=== PATIENT | male | born 1955 | race Caucasian/White ===

== ENCOUNTER → 2016-12-25 | Outpatient (CLI) | payer MEDICARE, MEDICAID ==
[2016-12-25 11:19] LABS: APPEARANCE,URINE CLEAR; BILIRUBIN,URINE NEGATIVE (NEGATIVE); GLUCOSE, URINE >=500 mg/dL (NEGATIVE); KETONES,URINE NEGATIVE (NEGATIVE); LEUKOCYTE ESTERASE,URINE NEGATIVE (NEGATIVE); NITRITE,URINE NEGATIVE (NEGATIVE); PROTEIN,URINE NEGATIVE (NEGATIVE); URINE SPECIFIC GRAVITY 1.029; UROBILINOGEN,URINE NEGATIVE mg/dL (<2.0)
[2016-12-25 11:34] LABS: HEMATOCRIT 41.2 % (37.9-51.0); HEMOGLOBIN 13.9 g/dL (13.5-17.0); HGB HCT DIFFERENCE 0.5; MEAN CORPUSCULAR HGB CONC 33.8 g/dL (32.0-36.0); MEAN CORPUSCULAR VOLUME 95 fl (80-97); RED BLOOD COUNT 4.34 10^6/uL (4.35-5.55); RED CELL DISTRIBUTION WIDTH 14.2 % (11.5-14.0); WHITE BLOOD COUNT 8.4 10^3/uL (4.0-10.5)
[2016-12-25 11:51] LABS: ANION GAP 12 (5-19); BLOOD UREA NITROGEN 24 mg/dL (7-20); CALCIUM 9.6 mg/dL (8.4-10.2); CARBON DIOXIDE 22 mmol/L (22-30); CHLORIDE 104 mmol/L (98-107); CREATININE RESULT 1.65 mg/dL (0.52-1.25); GLUCOSE 238 mg/dL (75-110); POTASSIUM 4.7 mmol/L (3.6-5.0); SODIUM 138.3 mmol/L (137-145)
[2016-12-26 11:40] LABS: CREATININE URINE 80.6 mg/dL (Not Estab.); MICROALBUMIN URINE 4.4 ug/mL (Not Estab.)
== END ==
LOC: LAB 11:01
PROVIDERS: ATTEND Internal Medicine Nephrology
DX: I12.9 Hypertensive chronic kidney disease with stage 1 through stage 4 chronic kidney disease, or unspecified chronic kidney disease (principal); N18.3 Chronic kidney disease, stage 3 (moderate); E11.9 Type 2 diabetes mellitus without complications
CPT/HCPCS: 36415; 80048; 81001; 82043; 82570; 85027

== ENCOUNTER → 2017-12-17 | Outpatient (CLI) | payer MEDICARE, MEDICAID ==
[2017-12-17 15:12] LABS: HEMATOCRIT 43.6 % (37.9-51.0); HEMOGLOBIN 14.7 g/dL (13.5-17.0); MEAN CORPUSCULAR HEMOGLOBIN 31.5 pg (27.0-33.4); MEAN CORPUSCULAR HGB CONC 33.8 g/dL (32.0-36.0); MEAN CORPUSCULAR VOLUME 93 fl (80-97); PLATELET COUNT 369 10^3/uL (150-450); RED BLOOD COUNT 4.68 10^6/uL (4.35-5.55); RED CELL DISTRIBUTION WIDTH 14.2 % (11.5-14.0); WHITE BLOOD COUNT 9.4 10^3/uL (4.0-10.5)
[2017-12-17 15:19] LABS: APPEARANCE,URINE CLEAR; BILIRUBIN,URINE NEGATIVE (NEGATIVE); COLOR,URINE YELLOW; GLUCOSE, URINE >=500 mg/dL (NEGATIVE); KETONES,URINE 20 mg/dL (NEGATIVE); LEUKOCYTE ESTERASE,URINE NEGATIVE (NEGATIVE); NITRITE,URINE NEGATIVE (NEGATIVE); PROTEIN,URINE 30 mg/dL (NEGATIVE); URINE SPECIFIC GRAVITY 1.029; UROBILINOGEN,URINE NEGATIVE mg/dL (<2.0)
[2017-12-17 15:30] LABS: ANION GAP 19 (5-19); BLOOD UREA NITROGEN 25 mg/dL (7-20); CALCIUM 10.3 mg/dL (8.4-10.2); CARBON DIOXIDE 24 mmol/L (22-30); CHLORIDE 101 mmol/L (98-107); GLUCOSE 241 mg/dL (75-110); SODIUM 143.9 mmol/L (137-145)
[2017-12-17 15:38] LABS: UR PRO/CREAT RATIO RESULT 0.4 mg/mg (0.0-0.2); URINE CREATININE 110.3 mg/dL (22-328); URINE PROTEIN 43.9 mg/dL (<12)
== END ==
LOC: LAB 14:52
PROVIDERS: ATTEND Internal Medicine Nephrology
DX: I12.9 Hypertensive chronic kidney disease with stage 1 through stage 4 chronic kidney disease, or unspecified chronic kidney disease (principal); N18.3 Chronic kidney disease, stage 3 (moderate); E11.9 Type 2 diabetes mellitus without complications; R80.9 Proteinuria, unspecified
CPT/HCPCS: 36415; 80048; 81001; 82570; 84156; 85027

== ENCOUNTER → 2018-05-02 | Outpatient (CLI) | payer MEDICARE, MEDICAID ==
[2018-05-02 14:16] LABS: APPEARANCE,URINE CLEAR; BILIRUBIN,URINE NEGATIVE (NEGATIVE); COLOR,URINE STRAW; GLUCOSE, URINE >=500 mg/dL (NEGATIVE); KETONES,URINE NEGATIVE (NEGATIVE); LEUKOCYTE ESTERASE,URINE NEGATIVE (NEGATIVE); NITRITE,URINE NEGATIVE (NEGATIVE); PROTEIN,URINE NEGATIVE (NEGATIVE); URINE SPECIFIC GRAVITY 1.023; UROBILINOGEN,URINE NEGATIVE mg/dL (<2.0)
[2018-05-02 14:24] LABS: HEMATOCRIT 40.4 % (37.9-51.0); HEMOGLOBIN 13.9 g/dL (13.5-17.0); MEAN CORPUSCULAR HEMOGLOBIN 31.7 pg (27.0-33.4); MEAN CORPUSCULAR HGB CONC 34.5 g/dL (32.0-36.0); MEAN CORPUSCULAR VOLUME 92 fl (80-97); PLATELET COUNT 370 10^3/uL (150-450); RED BLOOD COUNT 4.39 10^6/uL (4.35-5.55); RED CELL DISTRIBUTION WIDTH 14.5 % (11.5-14.0); WHITE BLOOD COUNT 10.2 10^3/uL (4.0-10.5)
[2018-05-02 14:32] LABS: UR PRO/CREAT RATIO RESULT 0.3 mg/mg (0.0-0.2); URINE CREATININE 51.6 mg/dL (22-328); URINE PROTEIN 13.7 mg/dL (<12)
[2018-05-02 14:44] LABS: ANION GAP 15 (5-19); BLOOD UREA NITROGEN 23 mg/dL (7-20); CALCIUM 9.9 mg/dL (8.4-10.2); CARBON DIOXIDE 26 mmol/L (22-30); CHLORIDE 105 mmol/L (98-107); GLUCOSE 184 mg/dL (75-110); PHOSPHORUS 3.8 mg/dL (2.5-4.5); POTASSIUM 4.9 mmol/L (3.6-5.0); SODIUM 145.5 mmol/L (137-145)
== END ==
LOC: OD 13:30
PROVIDERS: ATTEND Physician Assistant Medical
DX: I12.9 Hypertensive chronic kidney disease with stage 1 through stage 4 chronic kidney disease, or unspecified chronic kidney disease (principal); N18.3 Chronic kidney disease, stage 3 (moderate); R80.9 Proteinuria, unspecified; E11.9 Type 2 diabetes mellitus without complications
CPT/HCPCS: 36415; 80048; 81001; 82570; 83970; 84100; 84156; 85027

== ENCOUNTER → 2018-11-04 | Outpatient (CLI) | payer MEDICARE, MEDICAID ==
[2018-11-04 14:37] LABS: HEMATOCRIT 41.7 % (37.9-51.0); HEMOGLOBIN 14.3 g/dL (13.5-17.0); MEAN CORPUSCULAR HEMOGLOBIN 32.1 pg (27.0-33.4); MEAN CORPUSCULAR HGB CONC 34.4 g/dL (32.0-36.0); MEAN CORPUSCULAR VOLUME 93 fl (80-97); PLATELET COUNT 359 10^3/uL (150-450); RED BLOOD COUNT 4.47 10^6/uL (4.35-5.55); WHITE BLOOD COUNT 11.7 10^3/uL (4.0-10.5)
[2018-11-04 14:42] LABS: APPEARANCE,URINE CLEAR; BILIRUBIN,URINE NEGATIVE (NEGATIVE); COLOR,URINE STRAW; GLUCOSE, URINE >=500 mg/dL (NEGATIVE); KETONES,URINE NEGATIVE (NEGATIVE); LEUKOCYTE ESTERASE,URINE NEGATIVE (NEGATIVE); NITRITE,URINE NEGATIVE (NEGATIVE); PROTEIN,URINE NEGATIVE (NEGATIVE); URINE SPECIFIC GRAVITY 1.029; UROBILINOGEN,URINE NEGATIVE mg/dL (<2.0)
[2018-11-04 14:51] LABS: ANION GAP 12 (5-19); BLOOD UREA NITROGEN 26 mg/dL (7-20); CALCIUM 9.7 mg/dL (8.4-10.2); CARBON DIOXIDE 27 mmol/L (22-30); CHLORIDE 102 mmol/L (98-107); GLUCOSE 307 mg/dL (75-110); PHOSPHORUS 4.8 mg/dL (2.5-4.5); POTASSIUM 5.1 mmol/L (3.6-5.0); SODIUM 140.8 mmol/L (137-145)
[2018-11-04 14:58] LABS: UR PRO/CREAT RATIO RESULT 0.2 mg/mg (0.0-0.2); URINE CREATININE 79.1 mg/dL (22-328); URINE PROTEIN 17.2 mg/dL (<12)
== END ==
LOC: LAB 14:18
PROVIDERS: ATTEND Physician Assistant Medical
DX: I12.9 Hypertensive chronic kidney disease with stage 1 through stage 4 chronic kidney disease, or unspecified chronic kidney disease (principal); N18.3 Chronic kidney disease, stage 3 (moderate); E11.22 Type 2 diabetes mellitus with diabetic chronic kidney disease; R80.9 Proteinuria, unspecified
CPT/HCPCS: 36415; 80048; 81001; 82570; 83970; 84100; 84156; 85027

== ENCOUNTER 2018-11-08 11:14 | Emergency (ER) | payer MEDICAID, MEDICARE ==
[2018-11-08] MEDS ORDERED: ALBUTEROL SULFATE 0.083% NEB 2.5 MG/3 ML AMPUL NEB ONE (12:16)
--- NOTE | 2018-11-08 12:20 | ER Document Report ---
ED General - General Chief Complaint: Chest Pressure Stated Complaint: CHEST PAINS Time Seen by Provider: 11/08/18 11:21 Notes: 63-year-old male presents to emerge from with some chest discomfort and palpitations. The patient stated he was at his doctor's office when he began feeling palpitations but felt like a rapid heart rate. He was sent over here to the ER for evaluation. He denies chest pain proper but does states he felt as if his heart was going fast. He really denies shortness of breath dizziness or nausea. He states he has been out of his inhaler for the last week. He denies any fever chills or sore throat. Has had a cough but that is standard for him denies any productive cough. Denies calf pain or leg swelling. TRAVEL OUTSIDE OF THE [place] IN LAST 30 DAYS: No - Related Data Allergies/Adverse Reactions: Sulfa (Sulfonamide Antibiotics) Allergy (Verified 03/04/16 16:09) Past Medical History - Social History Smoking Status: Unknown if Ever Smoked Family History: Reviewed & Not Pertinent Patient has suicidal ideation: No Patient has homicidal ideation: No - Past Medical History Cardiac Medical History: Reports: Hx Hypercholesterolemia, Hx Hypertension Endocrine Medical History: Reports: Hx Diabetes Mellitus Type 2 Renal/ Medical History: Denies: Hx Peritoneal Dialysis Past Surgical History: Reports: Hx Appendectomy, Hx Cholecystectomy - Immunizations Hx Diphtheria, Pertussis, Tetanus Vaccination: Yes Review of Systems - Review of Systems Respiratory: Cough Gastrointestinal: denies: Nausea, Vomiting Neurological/Psychological: denies: Headaches -: Yes All other systems reviewed and negative Physical Exam - Vital signs Vitals: Temp 99.1 F 11/08/18 11:24 - Notes Notes: GENERAL_APPEARANCE: well_nourished, alert, cooperative, no_acute_distress, no_obvious_discomfort. VITALS: reviewed, see vital signs table. HEAD: no_swelling\tenderness on the head. EYES: PERRL, EOMI, conjunctiva_clear. NOSE: no_nasal_discharge. MOUTH: (-)decreased moisture. THROAT: no_tonsilar_inflammation, no_airway_obstruction. no_lymphadenopathy NECK: supple, no_neck_tenderness, (-)thyromegaly. BACK: no_back_tenderness. CHEST_WALL: no_chest_tenderness. LUNGS: Scant_wheezing, no_rales, no_rhonchi, (-)accessory muscle use, good air exchange bilateral. HEART: normal_rate, normal_rhythm, normal_S1, normal_S2, (-)S3, (-)S4, no_murmur, no_rub. ABDOMEN: normal_BS, soft, no_abd_tenderness, (-)guarding, (-)rebound, no_organomegaly, no_abd_masses. EXTREMITIES: good pulses in all_extremities, no_swelling\tenderness in the extremities, trace_edema. SKIN: warm, dry, good_color, no_rash. MENTAL_STATUS: speech_clear, oriented_X_3, normal_affect, responds_appropriately to questions. Course - Re-evaluation Re-evalutation: 11/08/18 12:19 Patient presents with some mild chest discomfort palpitations. He states he is feeling better now states his been out of his inhaler will give him a albuterol here. Will check some generalized lab work. 11/08/18 14:20 Patient feels much better after the aerosol treatment. There looks to be a little hemolysis to the BMP. We will give the patient a little bit of IV fluid. Otherwise encouraged him to hydrate I think this is more likely hemolysis. The patient will be given a prescription for albuterol inhaler. He will likely need to have his electro lites rechecked in several days. - Vital Signs Vital signs: Temp Pulse Resp BP Pulse Ox 99.1 F 11/08/18 11:24 - Laboratory Result Diagrams: 11/08/18 12:58 11/08/18 12:58 Laboratory results interpreted by me: 11/08/18 11/08/18 11:22 12:58 Potassium 5.8 H Carbon Dioxide 21 L BUN 30 H Creatinine 1.81 H Est GFR ( Amer) 46 L Est GFR (Non-Af Amer) 38 L Glucose 280 H POC Glucose 333 H Calcium 10.3 H - Diagnostic Test Radiology reviewed: Reports reviewed Radiology results interpreted by me: 11/08/18 14:20 Chest X-Ray 11/08/18 12:17 IMPRESSION: NO ACUTE RADIOGRAPHIC FINDING IN THE CHEST. - EKG Interpretation by [facility] EKG shows normal: Sinus rhythm Rate: Tachycardia When compared to previous EKG there are: No significant change Additional EKG results interpreted by me: 11/08/18 14:20 Sinus tach [address] abnormalities Discharge - Discharge Clinical Impression: Chest discomfort, Bronchospasm, Dehydration Condition: Good Disposition: HOME, SELF-CARE Instructions: Chest Pain of Unclear Cause ([facility]), Dehydration ([facility]) Additional Instructions: Next week please visit your family doctor and have your electrolytes rechecked. You had some mild dehydration making your potassium mildly elevated. Drink plenty of fluids this weekend and have your electrolytes/metabolic panel rechecked on Sunday or Sunday. Please call your doctor. If you are unable to get up with your doctor return to the emergency department. Prescriptions: Albuterol Sulfate [Proair HFA Inhalation Aerosol 8.5 gm MDI] 2 puff IH Q4H PRN #1 mdi PRN Reason: Referrals: JESS BRIONES PA-C [Primary Care Provider] - Follow up as needed
--- NOTE | 2018-11-08 13:18 | RADIOLOGY REPORT (SQ) ---
EXAM DESCRIPTION: CHEST SINGLE VIEW COMPLETED DATE/TIME: 11/08/2018 1:01 pm REASON FOR STUDY: cp COMPARISON: 03/30/2010. EXAM PARAMETERS: NUMBER OF VIEWS: One view. TECHNIQUE: Single frontal radiographic view of the chest acquired. RADIATION DOSE: NA LIMITATIONS: None. FINDINGS: LUNGS AND PLEURA: No opacities, masses or pneumothorax. No pleural effusion. MEDIASTINUM AND HILAR STRUCTURES: No masses. Contour normal. HEART AND VASCULAR STRUCTURES: Heart normal in size. Normal vasculature. BONES: No acute findings. HARDWARE: None in the chest. OTHER: No other significant finding. IMPRESSION: NO ACUTE RADIOGRAPHIC FINDING IN THE CHEST. TECHNICAL DOCUMENTATION: JOB ID: [id number] [employer]- All Rights Reserved Reading location - IP/workstation name: [email or web address]
[2018-11-08 13:38] LABS: ABSOLUTE BASOPHILS # (AUTO) 0.1 10^3/uL (0.0-0.2); ABSOLUTE EOSINOPHILS # (AUTO) 0.5 10^3/uL (0.0-0.6); ABSOLUTE MONOCYTES (AUTO) 0.7 10^3/uL (0.1-1.4); BASOPHILS % (AUTO) 1.1 % (0-2); EOSINOPHILS % (AUTO) 4.6 % (0-6); HEMATOCRIT 43.7 % (37.9-51.0); HEMOGLOBIN 14.9 g/dL (13.5-17.0); LYMPHOCYTES % (AUTO) 19.3 % (13-45); MEAN CORPUSCULAR VOLUME 94 fl (80-97); MONOCYTES % (AUTO) 6.9 % (3-13); PLATELET COUNT 339 10^3/uL (150-450); RED BLOOD COUNT 4.64 10^6/uL (4.35-5.55); SEGMENTED NEUTROPHILS % (AUTO) 68.1 % (42-78); TOTAL CELLS COUNTED % (AUTO) 100 %; WHITE BLOOD COUNT 10.3 10^3/uL (4.0-10.5)
[2018-11-08 14:02] LABS: ANION GAP 14 (5-19); BLOOD UREA NITROGEN 30 mg/dL (7-20); CALCIUM 10.3 mg/dL (8.4-10.2); CARBON DIOXIDE 21 mmol/L (22-30); CHLORIDE 103 mmol/L (98-107); GLUCOSE 280 mg/dL (75-110); POTASSIUM 5.8 mmol/L (3.6-5.0); SODIUM 138.1 mmol/L (137-145)
[2018-11-08] MEDS ORDERED: NORMAL SALINE 1000 ML 1,000 ML IV ONE (14:16)
[2018-11-08 14:37] VITALS: BP 100/61
== END 2018-11-08 14:38 | disposition home or self-care (01) ==
LOC: ER 11:14
DX: J98.01 Acute bronchospasm (principal); E86.0 Dehydration; R00.2 Palpitations; R00.0 Tachycardia, unspecified; R05 Cough; R06.2 Wheezing; I10 Essential (primary) hypertension; E11.9 Type 2 diabetes mellitus without complications; Z88.2 Allergy status to sulfonamides
CPT/HCPCS: 94640; 99285; 36415; 82962; 85025; 80048; 84484; 71045; A9270

== ENCOUNTER → 2019-05-02 | Outpatient (CLI) | payer MEDICAID, MEDICARE ==
[2019-05-02 11:52] LABS: HEMATOCRIT 39.6 % (37.9-51.0); HEMOGLOBIN 13.5 g/dL (13.5-17.0); MEAN CORPUSCULAR HEMOGLOBIN 31.9 pg (27.0-33.4); MEAN CORPUSCULAR HGB CONC 34.2 g/dL (32.0-36.0); MEAN CORPUSCULAR VOLUME 93 fl (80-97); PLATELET COUNT 348 10^3/uL (150-450); RED BLOOD COUNT 4.25 10^6/uL (4.35-5.55); RED CELL DISTRIBUTION WIDTH 14.2 % (11.5-14.0); WHITE BLOOD COUNT 8.4 10^3/uL (4.0-10.5)
[2019-05-02 11:58] LABS: APPEARANCE,URINE CLEAR; BILIRUBIN,URINE NEGATIVE (NEGATIVE); COLOR,URINE STRAW; GLUCOSE, URINE >=500 mg/dL (NEGATIVE); KETONES,URINE NEGATIVE (NEGATIVE); LEUKOCYTE ESTERASE,URINE NEGATIVE (NEGATIVE); NITRITE,URINE NEGATIVE (NEGATIVE); PROTEIN,URINE NEGATIVE (NEGATIVE); URINE SPECIFIC GRAVITY 1.027; UROBILINOGEN,URINE NEGATIVE mg/dL (<2.0)
[2019-05-02 12:22] LABS: ANION GAP 13 (5-19); BLOOD UREA NITROGEN 34 mg/dL (7-20); CALCIUM 10.4 mg/dL (8.4-10.2); CARBON DIOXIDE 24 mmol/L (22-30); CHLORIDE 104 mmol/L (98-107); GLUCOSE 248 mg/dL (75-110); PHOSPHORUS 4.7 mg/dL (2.5-4.5); POTASSIUM 5.2 mmol/L (3.6-5.0); SODIUM 140.6 mmol/L (137-145)
[2019-05-02 12:22] LABS: UR PRO/CREAT RATIO RESULT 0.3 mg/mg (0.0-0.2); URINE CREATININE 75.1 mg/dL (22-328); URINE PROTEIN 21.7 mg/dL (<12)
== END ==
LOC: LAB 10:50
PROVIDERS: ATTEND Physician Assistant Medical
DX: I12.9 Hypertensive chronic kidney disease with stage 1 through stage 4 chronic kidney disease, or unspecified chronic kidney disease (principal); N18.3 Chronic kidney disease, stage 3 (moderate); E11.22 Type 2 diabetes mellitus with diabetic chronic kidney disease; R80.9 Proteinuria, unspecified
CPT/HCPCS: 36415; 80048; 81001; 82570; 83970; 84100; 84156; 85027

== ENCOUNTER 2020-05-24 13:22 | Inpatient (IN) | payer MEDICARE ==
[2020-05-24] MEDS ORDERED: RINGERS SOLUTION,LACTATED 1,000 ML IV ONE (15:00)
[2020-05-24 15:12] LABS: ABSOLUTE BASOPHILS # (AUTO) 0.1 10^3/uL (0.0-0.2); ABSOLUTE EOSINOPHILS # (AUTO) 0.2 10^3/uL (0.0-0.6); ABSOLUTE LYMPHOCYTES (AUTO) 2.2 10^3/uL (0.5-4.7); ABSOLUTE MONOCYTES (AUTO) 0.8 10^3/uL (0.1-1.4); ABSOLUTE NEUT (AUTO) 7.6 10^3/uL (1.7-8.2); BASOPHILS % (AUTO) 1.2 % (0-2); EOSINOPHILS % (AUTO) 2.1 % (0-6); HEMATOCRIT 42.3 % (37.9-51.0); HEMOGLOBIN 14.4 g/dL (13.5-17.0); LYMPHOCYTES % (AUTO) 19.8 % (13-45); MEAN CORPUSCULAR HEMOGLOBIN 32.7 pg (27.0-33.4); MEAN CORPUSCULAR HGB CONC 34.2 g/dL (32.0-36.0); MEAN CORPUSCULAR VOLUME 96 fl (80-97); MONOCYTES % (AUTO) 7.6 % (3-13); PLATELET COUNT 361 10^3/uL (150-450); RED BLOOD COUNT 4.42 10^6/uL (4.35-5.55); RED CELL DISTRIBUTION WIDTH 14.6 % (11.5-14.0); SEGMENTED NEUTROPHILS % (AUTO) 69.3 % (42-78); TOTAL CELLS COUNTED % (AUTO) 100 %; WHITE BLOOD COUNT 10.9 10^3/uL (4.0-10.5)
[2020-05-24 15:17] LABS: INTERNATIONAL RATION (INR) 0.96; PROTHROMBIN TIME 12.8 SEC (11.4-15.4)
[2020-05-24 15:35] LABS: ALBUMIN 4.6 g/dL (3.5-5.0); ALKALINE PHOSPHATASE 94 U/L (38-126); ANION GAP 11 (5-19); ASPARTATE AMINO TRANSFERASE 36 U/L (17-59); BILIRUBIN,TOTAL 0.7 mg/dL (0.2-1.3); BLOOD UREA NITROGEN 40 mg/dL (7-20); CALCIUM 9.5 mg/dL (8.4-10.2); CARBON DIOXIDE 18 mmol/L (22-30); CHLORIDE 104 mmol/L (98-107); GLUCOSE 381 mg/dL (75-110); TOTAL PROTEIN 8.4 g/dL (6.3-8.2)
[2020-05-24 15:39] LABS: POTASSIUM 6.4 mmol/L (3.6-5.0)
[2020-05-24 15:43] LABS: APPEARANCE,URINE CLEAR; BILIRUBIN,URINE NEGATIVE (NEGATIVE); COLOR,URINE YELLOW; GLUCOSE, URINE >=500 mg/dL (NEGATIVE); KETONES,URINE TRACE mg/dL (NEGATIVE); PROTEIN,URINE NEGATIVE (NEGATIVE); URINE SPECIFIC GRAVITY 1.022; UROBILINOGEN,URINE NEGATIVE mg/dL (<2.0)
[2020-05-24 15:48] LABS: NT PRO BNP 32 pg/mL (<125)
[2020-05-24] MEDS ORDERED: NORMAL SALINE 1000 ML 1,000 ML IV ONE (15:49)
[2020-05-24 15:55] LABS: TROPONIN I < 0.012 ng/mL
--- NOTE | 2020-05-24 16:01 | ER Document Report ---
ED General - General Chief Complaint: Low Blood Pressure Stated Complaint: DIRECT ADMIT Time Seen by Provider: 05/24/20 14:46 Primary Care Provider: JESS BRIONES PA-C [Primary Care Provider] - Follow up as needed Notes: 64-year-old male presents emergency department from Dr. Anand's office due to hypotension. Dr. Villalobos had wanted him to be a direct admit however there were no beds available and patient was not felt to be stable to wait at home so he came to the ED. patient apparently had elevated blood sugar into the 350s on Sunday and then checked again and it was still elevated today, also noticed to have low blood pressure at home and went into into the office today. Complains of feeling sick to his stomach but not actually vomiting and denies any abdominal pain. Also feels lightheaded and like he may pass out intermittently. Denies any cough, shortness of breath, vomiting, diarrhea or abdominal pain. Denies any chest pain as well. Denies any fevers. TRAVEL OUTSIDE OF THE [place] IN LAST 30 DAYS: No - Related Data Allergies/Adverse Reactions: Sulfa (Sulfonamide Antibiotics) Allergy (Verified 03/04/16 16:09) Past Medical History - General Information source: Patient - Social History Smoking Status: Former Smoker Frequency of alcohol use: None Drug Abuse: None Family History: Reviewed & Not Pertinent Patient has homicidal ideation: No - Past Medical History Cardiac Medical History: Reports: Hx Hypercholesterolemia, Hx Hypertension Endocrine Medical History: Reports: Hx Diabetes Mellitus Type 2 Renal/ Medical History: Denies: Hx Peritoneal Dialysis Past Surgical History: Reports: Hx Appendectomy, Hx Cholecystectomy - Immunizations Hx Diphtheria, Pertussis, Tetanus Vaccination: Yes Review of Systems - Review of Systems Constitutional: See HPI, Weakness EENT: No symptoms reported Cardiovascular: See HPI, Lightheaded. denies: Chest pain Gastrointestinal: See HPI, Nausea. denies: Vomiting -: Yes All other systems reviewed and negative Physical Exam - Vital signs Vitals: Temp Pulse Resp BP Pulse Ox 97.7 F 103 H 18 88/61 L 96 05/24/20 13:40 05/24/20 13:40 05/24/20 13:40 05/24/20 13:40 05/24/20 13:40 Interpretation: Hypotensive - Notes Notes: GENERAL: Morbidly obese, slightly slow to respond, but will answer and follow commands. HEAD: Normocephalic, atraumatic EYES: Pupils equal, round and reactive to light, extraocular movements intact. ENT: Oral mucosa moist, tongue midline. NECK: Full range of motion, supple, trachea midline. LUNGS: Clear to auscultation bilaterally, no wheezes, rales or rhonchi, no re spiratory distress. HEART: Regular rate and rhythm, no murmurs, gallops, rubs. ABDOMEN: Soft, nontender, nondistended, bowel sounds present in all 4 quadrants. EXTREMITIES: Moves all 4 extremities spontaneously, no edema, radial and dorsalis pedis pulses 2/4 bilaterally. No cyanosis. NEUROLOGICAL: Awake, slow to answer questions but will answer them follow commands, no facial droop, 5 out of 5 muscle strength in all 4 extremities. PSYCH: Normal mood, normal affect. SKIN: Warm, Dry, normal turgor, slightly pale. Course - Re-evaluation Re-evalutation: 05/24/20 16:21 Sepsis protocol initiated, fluids started, once potassium was discovered to be elevated fluids were switched from LR to normal saline, CBC shows slight le ukocytosis of 10.9, INR unremarkable, CMP shows slight low sodium 132.7 which is likely pseudohyponatremia given the glucose of 381, potassium elevated at 6.4, this is being treated with Veltassa, calcium gluconate, sodium bicarb, insulin. Discussed with Dr. Lombardo who is aware of the patient's presence. EKG does not show peaked T waves, agrees no need for emergent dialysis right now. He will c ontinue to monitor. His CO2 is low was 18, patient is being hydrated using normal saline, he has acute on chronic renal failure with a BUN of 40 and creatinine 2.48, glucose elevated at 381, lactic acid normal, troponin normal, 05/24/20 16:22 No evidence of sepsis or septic shock at this time. No indication for IV antibiotics at this time. Discussed with Dr. Villalobos, would like the patient admitted to the [facility], agrees with current management. He will take over care of patient from here. - Vital Signs Vital signs: Temp Pulse Resp BP Pulse Ox 97.7 F 103 H 17 100/65 95 05/24/20 13:40 05/24/20 13:40 05/24/20 15:01 05/24/20 15:01 05/24/20 15:01 - Laboratory Result Diagrams: 05/24/20 14:50 05/24/20 14:50 Laboratory results interpreted by me: 05/24/20 05/24/20 05/24/20 14:49 14:50 14:50 WBC 10.9 H RDW 14.6 H Sodium 132.7 L Potassium 6.4 H* Carbon Dioxide 18 L BUN 40 H Creatinine 2.48 H Est GFR ( Amer) 32 L Est GFR (MDRD) Non-Af 26 L Glucose 381 H POC Glucose 384 H ALT 53 H Total Protein 8.4 H Urine Glucose (UA) Urine Ketones 05/24/20 15:35 WBC RDW Sodium Potassium Carbon Dioxide BUN Creatinine Est GFR ( Amer) Est GFR (MDRD) Non-Af Glucose POC Glucose ALT Total Protein Urine Glucose (UA) >=500 H Urine Ketones TRACE H - EKG Interpretation by Me Additional EKG results interpreted by me: 05/24/20 16:24 EKG shows sinus rhythm at a rate of 89, incomplete right bundle branch block, no ST segment elevations or depressions, there are T wave inversions noted in lead II, 3 as well as some PVCs per my interpretation. 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
[2020-05-24 16:06] LABS: VENOUS BLOOD BASE EXCESS -8.3 mmol/L; VENOUS BLOOD HCO3 19.2 mmol/L (20-32); VENOUS BLOOD PCO2 46.1 mmHg (35-63); VENOUS BLOOD PH 7.24 (7.30-7.42)
[2020-05-24] MEDS ORDERED: SODIUM BICARBONATE 8.4% INJ 50 MEQ/50 ML DISP.SYRIN IV ONE (16:07)
[2020-05-24] MEDS ORDERED: INSULIN REG, HUMAN 100 UNIT/ML 3 ML VIAL (PYX) IV ONE (16:07)
[2020-05-24] MEDS ORDERED: CALCIUM CHLORIDE 10% PF/INJ 1000 MG/10 ML SDV IV ONE (16:08)
[2020-05-24] MEDS ORDERED: CALCIUM GLUCONATE 1000 MG/10 ML INJ IV ONE (16:17)
--- NOTE | 2020-05-24 16:30 | RADIOLOGY REPORT (SQ) ---
EXAM DESCRIPTION: CHEST 2 VIEWS IMAGES COMPLETED DATE/TIME: 05/24/2020 4:21 pm REASON FOR STUDY: hypotension, nausea COMPARISON: 11/08/2018 NUMBER OF VIEWS: Two views. TECHNIQUE: Frontal and lateral radiographic views of the chest acquired. LIMITATIONS: None. FINDINGS: LUNGS AND PLEURA: Increased perihilar lung markings. No focal consolidation, masses or pn eumothorax. No pleural effusion. MEDIASTINUM AND HILAR STRUCTURES: No masses or contour abnormality. HEART AND VASCULAR STRUCTURES: Cardiac enlargement. Vascular congestion. BONES: No acute findings. HARDWARE: None in the chest. OTHER: No other significant finding. IMPRESSION: CARDIAC ENLARGEMENT. VASCULAR CONGESTION. TECHNICAL DOCUMENTATION: JOB ID: [id number] [employer]- All Rights Reserved Reading location - IP/workstation name: [email or web address]
[2020-05-24] MEDS: PATIROMER 8.4 GM SUSP PACKET PO SCH (17:52)
--- NOTE | 2020-05-24 19:47 | EKG REPORT ---
SEVERITY:- ABNORMAL ECG - SINUS RHYTHM INCOMPLETE RIGHT BUNDLE BRANCH BLOCK BORDERLINE R WAVE PROGRESSION, ANTERIOR LEADS : Confirmed by: Carlee Chou MD 24-May-2020 19:46:46
[2020-05-24] MEDS ORDERED: DEXTROSE 40% GEL 15 GM TUBE PO PRN ×3 (20:30→20:44)
[2020-05-24] MEDS ORDERED: DEXTROSE 50%-WATER SYRINGE 12.5 GM/25 ML DOSE IV PRN (20:30)
[2020-05-24] MEDS ORDERED: DEXTROSE 40% GEL 15 GM TUBE X 2 PO PRN (20:30)
[2020-05-24] MEDS ORDERED: DEXTROSE 50%-WATER SYRINGE 25 GM/50 ML DOSE IV PRN (20:30)
[2020-05-24] MEDS ORDERED: GLUCAGON,HUMAN RECOMB 1 MG INJ IM PRN ×2 (20:30→20:44)
--- NOTE | 2020-05-24 20:39 | PDOC H&P ---
History of Present Illness Admission Date/PCP: 05/24/20 17:24 RAGHAV HAGER MD History of Present Illness: KIRSTEN HANCOCK is a 64 year old male, He has history of poorly controlled diabetes mellitus, partly due to nonadherence to recommended diet, he drinks up to 20 sodas every day, he came to the office today because he was not feeling well, the caregiver said he has been sick since Sunday, the blood sugar has been very uncontrolled but he refused to go to emergency room he preferred to come to the office this morning for evaluation. He was seen in the office this morning the blood pressure recorded was 96/57 the [id number] Accu-Chek was 350 patient was feeling very sick he laid on the floor in the office, he admitted polyuria, I felt patient needed to be admitted into the hospital for management. There was no bed available to admit him directly to the hospital according to the nursing supervisor production managing so patient was directed to the ER.In the emergency room he was found to have a low blood pressure, 88/61, the chemistry demonstrated serum creatinine 2.48, BUN was 40, the serum creatinine from March 30, 2020 was 1.41, the potassium was 6.4, the venous pH was 7.24 the serum bicarbonate was 18, the serum glucose was 381. The initial lactic acid was normal. Past Medical History Cardiac Medical History: Reports: Hyperlipidema, Hypertension Endocrine Medical History: Reports: Diabetes Mellitus Type 2, Obesity Renal/ Medical History: Reports: Chronic Kidney Disease, Other - Chronic kidney disease stage III Past Surgical History Past Surgical History: Reports: Appendectomy, Cholecystectomy Social History Smoking Status: Former Smoker Cigarettes Packs Per Day: 1.5 Electronic Cigarette use?: No Number of Years Smokin Last Time Smoked: 10 years ago Frequency of Alcohol Use: None Hx Recreational Drug Use: No Drugs: None Hx Prescription Drug Abuse: No Family History Family History: Reviewed & Not Pertinent Parental Family History Reviewed: Yes Children Family History Reviewed: Yes Sibling(s) Family History Reviewed.: Yes Medication/Allergy Home Medications: Glyburide 5 mg PO BID 03/04/16 Losartan Potassium 100 mg PO DAILY 03/04/16 Metformin HCl 1,000 mg PO BID 03/04/16 Omeprazole 40 mg PO BID 03/04/16 Quetiapine Fumarate 100 mg PO DAILY 03/04/16 Albuterol Sulfate [Ventolin Hfa 8 gm Mdi] 1 puff IH Q4HP PRN 05/24/20 Budesonide/Formoterol Fumarate [Symbicort Hfa 160-4.5 Mcg Inhaler 6 gm] 1 puff IH Q12 05/24/20 Olmesartan Medoxomil [Benicar] 40 mg PO DAILY 05/24/20 Allergies/Adverse Reactions: Sulfa (Sulfonamide Antibiotics) Allergy (Verified 03/04/16 16:09) Review of Systems Constitutional: PRESENT: fatigue Eyes: ABSENT: visual disturbances Ears: ABSENT: hearing changes Cardiovascular: ABSENT: chest pain, dyspnea on exertion, edema, orthropnea, palpitations Respiratory: ABSENT: cough, hemoptysis Gastrointestinal: ABSENT: abdominal pain, constipation, diarrhea, hematemesis, hematochezia, nausea, vomiting Genitourinary: PRESENT: other - Polyuria Musculoskeletal: ABSENT: joint swelling Integumentary: ABSENT: rash, wounds Neurological: ABSENT: abnormal gait, abnormal speech, confusion, dizziness, focal weakness, syncope Psychiatric: ABSENT: anxiety, depression, homidical ideation, suicidal ideation Endocrine: PRESENT: polydipsia, polyuria. ABSENT: cold intolerance, heat intolerance, menstrual abnormalities Hematologic/Lymphatic: ABSENT: easy bleeding, easy bruising, lymphadenopathy Physical Exam Vital Signs: Temp Pulse Resp BP Pulse Ox 97.2 F 79 15 132/83 H 96 05/24/20 18:40 05/24/20 18:40 05/24/20 18:40 05/24/20 18:40 05/24/20 18:40 Intake & Output 05/23/20 05/24/20 05/25/20 06:59 06:59 06:59 Intake Total 1999 Balance 1999 Weight 123.4 kg General appearance: PRESENT: obese Head exam: PRESENT: atraumatic, normocephalic Eye exam: PRESENT: PERRLA Ear exam: PRESENT: normal external ear exam Mouth exam: PRESENT: dry mucosa Neck exam: PRESENT: full ROM Respiratory exam: PRESENT: clear to auscultation maurizio Cardiovascular exam: PRESENT: RRR, +S1, +S2 Pulses: PRESENT: normal dorsalis pedis pul, +2 pedal pulses bilateral Vascular exam: PRESENT: normal capillary refill GI/Abdominal exam: PRESENT: normal bowel sounds, soft Rectal exam: PRESENT: deferred Neurological exam: PRESENT: alert, CN II-XII grossly intact. ABSENT: motor sensory deficit Skin exam: PRESENT: dry, intact, warm. ABSENT: cyanosis, rash Results Laboratory Results: 05/24/20 14:50 05/24/20 14:50 05/24/20 05/24/20 05/24/20 14:50 14:50 14:50 WBC 10.9 H RBC 4.42 Hgb 14.4 Hct 42.3 MCV 96 MCH 32.7 MCHC 34.2 RDW 14.6 H Plt Count 361 Seg Neutrophils % 69.3 VBG pH VBG pCO2 VBG HCO3 VBG Base Excess Sodium 132.7 L Potassium 6.4 H* Chloride 104 Carbon Dioxide 18 L Anion Gap 11 BUN 40 H Creatinine 2.48 H Est GFR ( Amer) 32 L Glucose 381 H Lactic Acid 1.9 Calcium 9.5 Total Bilirubin 0.7 AST 36 Alkaline Phosphatase 94 Total Protein 8.4 H Albumin 4.6 Lipase 193.9 Urine Color Urine Appearance Urine pH Ur Specific Twain Urine Protein Urine Glucose (UA) Urine Ketones Urine Blood Urine RBC (Auto) 05/24/20 05/24/20 05/24/20 15:35 15:35 17:35 WBC RBC Hgb Hct MCV MCH MCHC RDW Plt Count Seg Neutrophils % VBG pH 7.24 L VBG pCO2 46.1 VBG HCO3 19.2 L VBG Base Excess -8.3 Sodium Potassium Chloride Carbon Dioxide Anion Gap BUN Creatinine Est GFR ( Amer) Glucose Lactic Acid 3.0 H Calcium Total Bilirubin AST Alkaline Phosphatase Total Protein Albumin Lipase Urine Color YELLOW Urine Appearance CLEAR Urine pH 5.0 Ur Specific Twain 1.022 Urine Protein NEGATIVE Urine Glucose (UA) >=500 H Urine Ketones TRACE H Urine Blood NEGATIVE Urine RBC (Auto) 0 05/24/20 14:50 Troponin I < 0.012 NT-Pro-B Natriuret Pep 32 Impressions: Chest X-Ray 05/24/20 15:00 IMPRESSION: CARDIAC ENLARGEMENT. VASCULAR CONGESTION. Assessment & Plan - Diagnosis (1) Acute kidney injury Is this a current diagnosis for this admission?: Yes Plan: The serum creatinine was 1.41 from March 30, 2020, the serum creatinine today is 2.48 suggesting acute kidney injury most likely this is due to volume depletion, low blood pressure, hemodynamic instability, we will hydrate vigorously to restore volume, continue to monitor kidney function (2) Metabolic acidosis Is this a current diagnosis for this admission?: Yes Plan: This is from acute kidney injury (3) Hypotension Qualifiers: Hypotension type: hypotension due to hypovolemia Qualified Code(s): I95.89 - Other hypotension; E86.1 - Hypovolemia Is this a current diagnosis for this admission?: Yes Plan: The low blood pressure is most likely from volume depletion from uncontrolled diabetes mellitus for the last many days. In the office the blood pressure recorded was 96/37, in the emergency room it was 88/61, the goal is to restore volume, the low blood pressure is most likely the etiology of the acute kidney injury (5) T2DM (type 2 diabetes mellitus) Qualifiers: Diabetes mellitus senior living insulin use: with senior living use Diabetes mellitus complication status: with neurologic complications Diabetes mellitus complication detail: with polyneuropathy Qualified Code(s): E11.42 - Type 2 diabetes mellitus with diabetic polyneuropathy; Z79.4 - buttermaker continuous churn (current) use of insulin Is this a current diagnosis for this admission?: Yes Plan: Continue hydration Accu-Chek
[2020-05-24] MEDS ORDERED: ACETAMINOPHEN 325 MG TABLET PO PRN (20:40)
[2020-05-24] MEDS ORDERED: DEXTROSE 50%-WATER 25 GM/50 ML DISP.SYRIN IV PRN ×2 (20:44)
[2020-05-24] MEDS: INSULIN LISPRO 100 UNIT/ML 3 ML VIAL SUBCUT SCH (21:33)
[2020-05-24] MEDS ORDERED: INSULIN LISPRO 100 UNIT/ML 3 ML VIAL SUBCUT SCH (22:00)
[2020-05-24] MEDS: ENOXAPARIN SODIUM INJ 40 MG/0.4 ML DISP.SYRIN SUBCUT SCH (22:07)
[2020-05-24] MEDS: PANTOPRAZOLE SODIUM 40 MG TABLET.DR PO SCH (22:07)
[2020-05-24 22:08] LABS: INTERNATIONAL RATION (INR) 0.92; PROTHROMBIN TIME 12.4 SEC (11.4-15.4)
[2020-05-24 22:09] LABS: PARTIAL THROMBOPLASTIN TIME 21.2 SEC (23.5-35.8)
[2020-05-24 22:32] LABS: ANION GAP 10 (5-19); BLOOD UREA NITROGEN 41 mg/dL (7-20); CALCIUM 9.7 mg/dL (8.4-10.2); CARBON DIOXIDE 23 mmol/L (22-30); CHLORIDE 105 mmol/L (98-107); GLUCOSE 134 mg/dL (75-110); PHOSPHORUS 4.3 mg/dL (2.5-4.5)
[2020-05-24 22:51] LABS: CREATINE KINASE MB 3.84 ng/mL (<4.55)
[2020-05-24 22:52] LABS: TROPONIN I < 0.012 ng/mL
[2020-05-24 23:03] LABS: POTASSIUM 4.3 mmol/L (3.6-5.0)
[2020-05-24 23:34] LABS: APPEARANCE,URINE CLEAR; BILIRUBIN,URINE NEGATIVE (NEGATIVE); COLOR,URINE YELLOW; GLUCOSE, URINE >=500 mg/dL (NEGATIVE); KETONES,URINE NEGATIVE (NEGATIVE); LEUKOCYTE ESTERASE,URINE NEGATIVE (NEGATIVE); NITRITE,URINE NEGATIVE (NEGATIVE); PROTEIN,URINE 30 mg/dL (NEGATIVE); URINE SPECIFIC GRAVITY 1.016; UROBILINOGEN,URINE NEGATIVE mg/dL (<2.0)
[2020-05-24] MEDS: NORMAL SALINE 1000 ML 1,000 ML IV PRN (23:55)
[2020-05-25 03:16] LABS: ANION GAP 7 (5-19); BLOOD UREA NITROGEN 35 mg/dL (7-20); CALCIUM 9.1 mg/dL (8.4-10.2); CARBON DIOXIDE 26 mmol/L (22-30); CHLORIDE 104 mmol/L (98-107); GLUCOSE 150 mg/dL (75-110); POTASSIUM 4.1 mmol/L (3.6-5.0)
[2020-05-25 03:24] LABS: CREATINE KINASE MB 3.59 ng/mL (<4.55)
[2020-05-25 03:28] LABS: TROPONIN I 0.013 ng/mL
[2020-05-25] MEDS: NORMAL SALINE 1000 ML 1,000 ML IV PRN ×3 (06:53→21:03)
[2020-05-25 07:01] LABS: ABSOLUTE BASOPHILS # (AUTO) 0.1 10^3/uL (0.0-0.2); ABSOLUTE EOSINOPHILS # (AUTO) 0.3 10^3/uL (0.0-0.6); ABSOLUTE LYMPHOCYTES (AUTO) 2.3 10^3/uL (0.5-4.7); ABSOLUTE MONOCYTES (AUTO) 0.6 10^3/uL (0.1-1.4); ABSOLUTE NEUT (AUTO) 3.3 10^3/uL (1.7-8.2); BASOPHILS % (AUTO) 1.3 % (0-2); EOSINOPHILS % (AUTO) 4.8 % (0-6); HEMATOCRIT 36.8 % (37.9-51.0); HEMOGLOBIN 12.7 g/dL (13.5-17.0); LYMPHOCYTES % (AUTO) 35.3 % (13-45); MEAN CORPUSCULAR HEMOGLOBIN 32.4 pg (27.0-33.4); MEAN CORPUSCULAR HGB CONC 34.4 g/dL (32.0-36.0); MEAN CORPUSCULAR VOLUME 94 fl (80-97); MONOCYTES % (AUTO) 8.6 % (3-13); PLATELET COUNT 252 10^3/uL (150-450); RED BLOOD COUNT 3.91 10^6/uL (4.35-5.55); RED CELL DISTRIBUTION WIDTH 14.2 % (11.5-14.0); TOTAL CELLS COUNTED % (AUTO) 100 %; WHITE BLOOD COUNT 6.7 10^3/uL (4.0-10.5)
[2020-05-25 07:22] LABS: ALBUMIN 3.8 g/dL (3.5-5.0); ALKALINE PHOSPHATASE 71 U/L (38-126); ANION GAP 5 (5-19); ASPARTATE AMINO TRANSFERASE 32 U/L (17-59); BILIRUBIN,TOTAL 0.6 mg/dL (0.2-1.3); BLOOD UREA NITROGEN 31 mg/dL (7-20); CALCIUM 9.1 mg/dL (8.4-10.2); CARBON DIOXIDE 25 mmol/L (22-30); CHLORIDE 106 mmol/L (98-107); CHOLESTEROL 119.09 mg/dL (0-200); GLUCOSE 138 mg/dL (75-110); POTASSIUM 4.4 mmol/L (3.6-5.0); TOTAL PROTEIN 7.3 g/dL (6.3-8.2); TRIGLYCERIDES 247 mg/dL (<150)
[2020-05-25 07:33] LABS: DIRECT LDL 51 mg/dL (<100)
[2020-05-25 07:37] LABS: FREE T4 (FREE THYROXINE) 1.13 ng/dL (0.78-2.19)
[2020-05-25 07:43] LABS: AMYLASE < 30 U/L (30-110); VLDL CHOLESTEROL 49.4 mg/dL (10-31)
[2020-05-25 07:51] LABS: THYROID STIMULATING HORMONE 2.2 uIU/mL (0.47-4.68)
[2020-05-25] MEDS: PANTOPRAZOLE SODIUM 40 MG TABLET.DR PO SCH (10:00)
[2020-05-25] MEDS: INSULIN LISPRO 100 UNIT/ML 3 ML VIAL SUBCUT SCH ×4 (10:00→23:45)
--- NOTE | 2020-05-25 10:08 | EKG REPORT ---
SEVERITY:- NORMAL ECG - SINUS RHYTHM : Confirmed by: Carlee Chou MD 25-May-2020 10:07:04
[2020-05-25 12:23] LABS: ANION GAP 10 (5-19); BLOOD UREA NITROGEN 29 mg/dL (7-20); CALCIUM 9.1 mg/dL (8.4-10.2); CARBON DIOXIDE 22 mmol/L (22-30); CHLORIDE 104 mmol/L (98-107); CREATINE KINASE 173 U/L (55-170); GLUCOSE 313 mg/dL (75-110); POTASSIUM 4.6 mmol/L (3.6-5.0)
[2020-05-25 12:32] LABS: CREATINE KINASE MB 4.21 ng/mL (<4.55); TROPONIN I 0.012 ng/mL
[2020-05-25 15:05] LABS: ANION GAP 6 (5-19); BLOOD UREA NITROGEN 26 mg/dL (7-20); CALCIUM 8.8 mg/dL (8.4-10.2); CARBON DIOXIDE 25 mmol/L (22-30); CHLORIDE 105 mmol/L (98-107); GLUCOSE 264 mg/dL (75-110); POTASSIUM 4.5 mmol/L (3.6-5.0)
[2020-05-25] MEDS: ENOXAPARIN SODIUM INJ 40 MG/0.4 ML DISP.SYRIN SUBCUT SCH (17:31)
[2020-05-25] MEDS: PATIROMER 8.4 GM SUSP PACKET PO SCH (17:33)
[2020-05-25 18:43] LABS: ANION GAP 6 (5-19); BLOOD UREA NITROGEN 22 mg/dL (7-20); CALCIUM 8.6 mg/dL (8.4-10.2); CARBON DIOXIDE 24 mmol/L (22-30); CHLORIDE 106 mmol/L (98-107); GLUCOSE 218 mg/dL (75-110); POTASSIUM 4.3 mmol/L (3.6-5.0)
--- NOTE | 2020-05-25 21:15 | PDOC PROGRESS REPORT ---
Subjective Progress Note for:: 05/25/20 Subjective:: Patient seen by the bedside somewhat better than yesterday, blood sugar uncontrolled Reason For Visit: HYPOTENSION,UNCONTROLLED DIABETES,MORBID OBESITY Physical Exam Vital Signs: Temp Pulse Resp BP Pulse Ox 98.1 F 65 20 131/64 H 98 05/25/20 20:04 05/25/20 20:04 05/25/20 20:04 05/25/20 20:04 05/25/20 20:04 Intake & Output 05/24/20 05/25/20 05/26/20 06:59 06:59 06:59 Intake Total 3740 3250 Balance 3740 3250 Weight 124.5 kg General appearance: PRESENT: no acute distress Eye exam: PRESENT: PERRLA Respiratory exam: PRESENT: clear to auscultation maurizio Cardiovascular exam: PRESENT: +S1, +S2 GI/Abdominal exam: PRESENT: soft Neurological exam: PRESENT: alert Results Laboratory Results: 05/25/20 06:48 05/25/20 18:12 05/24/20 05/24/20 05/24/20 20:45 21:50 22:12 WBC RBC Hgb Hct MCV MCH MCHC RDW Plt Count Seg Neutrophils % Sodium 137.9 Potassium 4.3 D Chloride 105 Carbon Dioxide 23 Anion Gap 10 BUN 41 H Creatinine 2.02 H Est GFR ( Amer) 41 L Glucose 134 H Lactic Acid 1.1 Calcium 9.7 Phosphorus 4.3 Magnesium 2.0 Total Bilirubin AST Alkaline Phosphatase Ammonia Total Protein Albumin Triglycerides Cholesterol LDL Cholesterol Direct VLDL Cholesterol HDL Cholesterol Amylase Lipase TSH Free T4 Urine Color YELLOW Urine Appearance CLEAR Urine pH 5.0 Ur Specific [place] 1.016 Urine Protein 30 H Urine Glucose (UA) >=500 H Urine Ketones NEGATIVE Urine Blood SMALL H Urine Nitrite NEGATIVE Ur Leukocyte Esterase NEGATIVE Urine WBC (Auto) 1 Urine RBC (Auto) 13 05/25/20 05/25/20 05/25/20 02:30 06:48 06:48 WBC 6.7 RBC 3.91 L Hgb 12.7 L Hct 36.8 L MCV 94 MCH 32.4 MCHC 34.4 RDW 14.2 H Plt Count 252 Seg Neutrophils % 50.0 Sodium 137.3 136.2 L Potassium 4.1 4.4 Chloride 104 106 Carbon Dioxide 26 25 Anion Gap 7 5 BUN 35 H 31 H Creatinine 1.85 H 1.60 H Est GFR ( Amer) 45 L 53 L Glucose 150 H 138 H Lactic Acid Calcium 9.1 9.1 Phosphorus Magnesium Total Bilirubin 0.6 AST 32 Alkaline Phosphatase 71 Ammonia Total Protein 7.3 Albumin 3.8 Triglycerides 247 H Cholesterol 119.09 LDL Cholesterol Direct 51 VLDL Cholesterol 49.4 H HDL Cholesterol 38 L Amylase < 30 L Lipase 99.6 TSH Free T4 Urine Color Urine Appearance Urine pH Ur Specific [place] Urine Protein Urine Glucose (UA) Urine Ketones Urine Blood Urine Nitrite Ur Leukocyte Esterase Urine WBC (Auto) Urine RBC (Auto) 05/25/20 05/25/20 05/25/20 06:48 06:48 10:51 WBC RBC Hgb Hct MCV MCH MCHC RDW Plt Count Seg Neutrophils % Sodium 135.7 L Potassium 4.6 Chloride 104 Carbon Dioxide 22 Anion Gap 10 BUN 29 H Creatinine 1.50 H Est GFR ( Amer) 57 L Glucose 313 H Lactic Acid Calcium 9.1 Phosphorus Magnesium Total Bilirubin AST Alkaline Phosphatase Ammonia < 8.7 L Total Protein Albumin Triglycerides Cholesterol LDL Cholesterol Direct VLDL Cholesterol HDL Cholesterol Amylase Lipase TSH 2.20 Free T4 1.13 Urine Color Urine Appearance Urine pH Ur Specific [place] Urine Protein Urine Glucose (UA) Urine Ketones Urine Blood Urine Nitrite Ur Leukocyte Esterase Urine WBC (Auto) Urine RBC (Auto) 05/25/20 05/25/20 14:25 18:12 WBC RBC Hgb Hct MCV MCH MCHC RDW Plt Count Seg Neutrophils % Sodium 136.1 L 135.8 L Potassium 4.5 4.3 Chloride 105 106 Carbon Dioxide 25 24 Anion Gap 6 6 BUN 26 H 22 H Creatinine 1.43 H 1.40 H Est GFR ( Amer) > 60 > 60 Glucose 264 H 218 H Lactic Acid Calcium 8.8 8.6 Phosphorus Magnesium Total Bilirubin AST Alkaline Phosphatase Ammonia Total Protein Albumin Triglycerides Cholesterol LDL Cholesterol Direct VLDL Cholesterol HDL Cholesterol Amylase Lipase TSH Free T4 Urine Color Urine Appearance Urine pH Ur Specific [place] Urine Protein Urine Glucose (UA) Urine Ketones Urine Blood Urine Nitrite Ur Leukocyte Esterase Urine WBC (Auto) Urine RBC (Auto) 05/24/20 05/24/20 05/24/20 14:50 21:50 21:50 Creatine Kinase 139 CK-MB (CK-2) Troponin I < 0.012 NT-Pro-B Natriuret Pep 32 32 05/24/20 05/25/20 05/25/20 21:50 02:30 02:30 Creatine Kinase 160 CK-MB (CK-2) 3.84 3.59 Troponin I < 0.012 0.013 NT-Pro-B Natriuret Pep 05/25/20 05/25/20 10:51 10:51 Creatine Kinase 173 H CK-MB (CK-2) 4.21 Troponin I 0.012 NT-Pro-B Natriuret Pep Impressions: Chest X-Ray 05/24/20 15:00 IMPRESSION: CARDIAC ENLARGEMENT. VASCULAR CONGESTION. Assessment & Plan - Diagnosis (1) Acute kidney injury Is this a current diagnosis for this admission?: Yes Plan: Improving with hydration (2) Metabolic acidosis Is this a current diagnosis for this admission?: Yes Plan: Resolved (3) Hypotension Qualifiers: Hypotension type: hypotension due to hypovolemia Qualified Code(s): I95.89 - Other hypotension; E86.1 - Hypovolemia Is this a current diagnosis for this admission?: Yes Plan: Resolved (4) Hyperkalemia Is this a current diagnosis for this admission?: Yes Plan: Resolved (5) T2DM (type 2 diabetes mellitus) Qualifiers: Diabetes mellitus keno terminal operator insulin use: with keno terminal operator use Diabetes mellitus complication status: with neurologic complications Diabetes mellitus complication detail: with polyneuropathy Qualified Code(s): E11.42 - Type 2 diabetes mellitus with diabetic polyneuropathy; Z79.4 - terminal clerk (current) use of insulin Is this a current diagnosis for this admission?: Yes - Time Time Spent with patient: 25-34 minutes Level of Care: IMCU Medications reviewed and adjusted accordingly: Yes Anticipated discharge: Other Anticipated DC Timeframe: within 72 hours
[2020-05-25 23:47] LABS: ANION GAP 6 (5-19); BLOOD UREA NITROGEN 20 mg/dL (7-20); CALCIUM 9.1 mg/dL (8.4-10.2); CARBON DIOXIDE 26 mmol/L (22-30); CHLORIDE 105 mmol/L (98-107); GLUCOSE 185 mg/dL (75-110); POTASSIUM 4.6 mmol/L (3.6-5.0)
[2020-05-26 03:33] LABS: ANION GAP 6 (5-19); BLOOD UREA NITROGEN 19 mg/dL (7-20); CALCIUM 8.7 mg/dL (8.4-10.2); CARBON DIOXIDE 23 mmol/L (22-30); CHLORIDE 108 mmol/L (98-107); GLUCOSE 188 mg/dL (75-110); POTASSIUM 4.3 mmol/L (3.6-5.0)
[2020-05-26] MEDS: NORMAL SALINE 1000 ML 1,000 ML IV PRN ×4 (04:00→17:43)
[2020-05-26] MEDS: INSULIN LISPRO 100 UNIT/ML 3 ML VIAL SUBCUT SCH ×4 (08:04→22:24)
[2020-05-26 08:31] LABS: ANION GAP 6 (5-19); BLOOD UREA NITROGEN 17 mg/dL (7-20); CALCIUM 8.9 mg/dL (8.4-10.2); CARBON DIOXIDE 24 mmol/L (22-30); CHLORIDE 106 mmol/L (98-107); GLUCOSE 170 mg/dL (75-110); POTASSIUM 4.4 mmol/L (3.6-5.0)
[2020-05-26] MEDS: PANTOPRAZOLE SODIUM 40 MG TABLET.DR PO SCH (09:38)
[2020-05-26 11:41] LABS: ANION GAP 5 (5-19); BLOOD UREA NITROGEN 16 mg/dL (7-20); CALCIUM 8.7 mg/dL (8.4-10.2); CARBON DIOXIDE 24 mmol/L (22-30); CHLORIDE 107 mmol/L (98-107); GLUCOSE 242 mg/dL (75-110); POTASSIUM 4.6 mmol/L (3.6-5.0)
[2020-05-26 16:31] LABS: ANION GAP 8 (5-19); BLOOD UREA NITROGEN 15 mg/dL (7-20); CARBON DIOXIDE 24 mmol/L (22-30); CHLORIDE 106 mmol/L (98-107); GLUCOSE 192 mg/dL (75-110); POTASSIUM 4.5 mmol/L (3.6-5.0)
[2020-05-26] MEDS: ENOXAPARIN SODIUM INJ 40 MG/0.4 ML DISP.SYRIN SUBCUT SCH (17:21)
[2020-05-26] MEDS: PATIROMER 8.4 GM SUSP PACKET PO SCH (17:30)
[2020-05-26] MEDS ORDERED: ALBUTEROL SULFATE HFA (90 MCG/PUFF) 8 GM MDI IH PRN (17:39)
[2020-05-26] MEDS ORDERED: ALBUTEROL SULFATE HFA (90 MCG/PUFF) 200 PUFF/8.5 GM MDI IH PRN (17:44)
--- NOTE | 2020-05-26 17:44 | PDOC PROGRESS REPORT ---
Subjective Progress Note for:: 05/26/20 Subjective:: Patient seen by the bedside, the chemistry is normalized. The biggest challenge for this patient is lifestyle, he consumes too much soda, he does not exercise, unfortunately his insurance does not pay for evidence-based new diabetic agents SGLT 1 inhibitors, GLP receptor agonist Reason For Visit: HYPOTENSION,UNCONTROLLED DIABETES,MORBID OBESITY Physical Exam Vital Signs: Temp Pulse Resp BP Pulse Ox 97.7 F 55 L 15 134/58 H 98 05/26/20 12:09 05/26/20 14:00 05/26/20 12:09 05/26/20 12:09 05/26/20 12:09 Intake & Output 05/25/20 05/26/20 05/27/20 06:59 06:59 06:59 Intake Total 3740 4250 1948 Balance 3740 4250 1948 Weight 124.5 kg 125.3 kg General appearance: PRESENT: no acute distress, morbidly obese Head exam: PRESENT: atraumatic, normocephalic Eye exam: PRESENT: PERRLA Ear exam: PRESENT: normal external ear exam Mouth exam: PRESENT: moist, tongue midline Neck exam: PRESENT: full ROM Respiratory exam: PRESENT: clear to auscultation maurizio Cardiovascular exam: PRESENT: RRR, +S1, +S2 Vascular exam: PRESENT: normal capillary refill GI/Abdominal exam: PRESENT: normal bowel sounds, soft Rectal exam: PRESENT: deferred Neurological exam: PRESENT: alert, CN II-XII grossly intact Psychiatric exam: PRESENT: appropriate affect, normal mood Skin exam: PRESENT: dry, intact, warm Results Laboratory Results: 05/25/20 06:48 05/26/20 15:27 05/25/20 05/25/20 05/26/20 18:12 23:16 03:10 Sodium 135.8 L 136.5 L 137.0 Potassium 4.3 4.6 4.3 Chloride 106 105 108 H Carbon Dioxide 24 26 23 Anion Gap 6 6 6 BUN 22 H 20 19 Creatinine 1.40 H 1.57 H 1.33 H Est GFR ( Amer) > 60 54 L > 60 Glucose 218 H 185 H 188 H Calcium 8.6 9.1 8.7 05/26/20 05/26/20 05/26/20 07:58 11:02 15:27 Sodium 136.2 L 135.6 L 137.8 Potassium 4.4 4.6 4.5 Chloride 106 107 106 Carbon Dioxide 24 24 24 Anion Gap 6 5 8 BUN 17 16 15 Creatinine 1.23 1.15 1.07 Est GFR ( Amer) > 60 > 60 > 60 Glucose 170 H 242 H 192 H Calcium 8.9 8.7 9.0 05/24/20 22:12 Clean Catch Midstream Urine Culture - Final Mixed Urogenital Yane 05/24/20 05/24/20 05/24/20 14:50 21:50 21:50 Creatine Kinase 139 CK-MB (CK-2) Troponin I < 0.012 NT-Pro-B Natriuret Pep 32 32 05/24/20 05/25/20 05/25/20 21:50 02:30 02:30 Creatine Kinase 160 CK-MB (CK-2) 3.84 3.59 Troponin I < 0.012 0.013 NT-Pro-B Natriuret Pep 05/25/20 05/25/20 10:51 10:51 Creatine Kinase 173 H CK-MB (CK-2) 4.21 Troponin I 0.012 NT-Pro-B Natriuret Pep Impressions: Chest X-Ray 05/24/20 15:00 IMPRESSION: CARDIAC ENLARGEMENT. VASCULAR CONGESTION. Assessment & Plan - Diagnosis (1) Acute kidney injury Is this a current diagnosis for this admission?: Yes Plan: This is resolved (2) Metabolic acidosis Is this a current diagnosis for this admission?: Yes Plan: Resolved (3) Hypotension Qualifiers: Hypotension type: hypotension due to hypovolemia Qualified Code(s): I95.89 - Other hypotension; E86.1 - Hypovolemia Is this a current diagnosis for this admission?: Yes Plan: Resolved, start losartan for blood pressure (4) Hyperkalemia Is this a current diagnosis for this admission?: Yes Plan: Resolved (5) T2DM (type 2 diabetes mellitus) Qualifiers: Diabetes mellitus superintendent marine oil terminal insulin use: with superintendent marine oil terminal use Diabetes mellitus complication status: with neurologic complications Diabetes mellitus complication detail: with polyneuropathy Qualified Code(s): E11.42 - Type 2 diabetes mellitus with diabetic polyneuropathy; Z79.4 - FPC (current) use of insulin Is this a current diagnosis for this admission?: Yes Plan: Start glyburide, metformin, consult dietary for education - Time Time Spent with patient: 35 or more minutes Level of Care: IMCU Medications reviewed and adjusted accordingly: Yes Anticipated discharge: Home Anticipated DC Timeframe: within 36 hours
[2020-05-26] MEDS ORDERED: (PENDING PHARMACY ID) (Budesonide/Formoterol Fumarate 1 PUFF) IH SCH (17:45)
[2020-05-26] MEDS ORDERED: (PENDING PHARMACY ID) (Losartan Potassium [Losartan Potassium] 100 MG) PO SCH (17:45)
[2020-05-26] MEDS ORDERED: (PENDING PHARMACY ID) (Metformin Hcl [Metformin Hcl] 1,000 MG) PO SCH (18:00)
[2020-05-26 19:52] LABS: ANION GAP 6 (5-19); BLOOD UREA NITROGEN 14 mg/dL (7-20); CALCIUM 8.9 mg/dL (8.4-10.2); CARBON DIOXIDE 24 mmol/L (22-30); CHLORIDE 105 mmol/L (98-107); GLUCOSE 200 mg/dL (75-110); POTASSIUM 4.6 mmol/L (3.6-5.0)
[2020-05-26] MEDS ORDERED: QUETIAPINE FUMARATE 100 MG TABLET PO SCH (22:00)
[2020-05-26] MEDS: LOSARTAN POTASSIUM 50 MG TABLET PO SCH (22:23)
[2020-05-26] MEDS: METFORMIN HCL 500 MG TABLET PO SCH (22:23)
[2020-05-26] MEDS: GLYBURIDE 5 MG TABLET PO SCH (22:24)
[2020-05-26 23:41] LABS: ANION GAP 6 (5-19); BLOOD UREA NITROGEN 14 mg/dL (7-20); CALCIUM 8.8 mg/dL (8.4-10.2); CARBON DIOXIDE 24 mmol/L (22-30); CHLORIDE 105 mmol/L (98-107); GLUCOSE 189 mg/dL (75-110); POTASSIUM 4.4 mmol/L (3.6-5.0)
[2020-05-27 05:10] LABS: ANION GAP 6 (5-19); BLOOD UREA NITROGEN 13 mg/dL (7-20); CALCIUM 8.7 mg/dL (8.4-10.2); CARBON DIOXIDE 23 mmol/L (22-30); CHLORIDE 109 mmol/L (98-107); GLUCOSE 83 mg/dL (75-110); POTASSIUM 4.3 mmol/L (3.6-5.0)
[2020-05-27 07:34] LABS: BLOOD UREA NITROGEN 13 mg/dL (7-20); CHLORIDE 109 mmol/L (98-107); GLUCOSE 101 mg/dL (75-110); POTASSIUM 4.1 mmol/L (3.6-5.0)
[2020-05-27 07:47] LABS: CARBON DIOXIDE 25 mmol/L (22-30)
[2020-05-27] MEDS: INSULIN LISPRO 100 UNIT/ML 3 ML VIAL SUBCUT SCH ×3 (07:51→17:07)
[2020-05-27 07:52] LABS: ANION GAP 7 (5-19)
[2020-05-27] MEDS: LOSARTAN POTASSIUM 50 MG TABLET PO SCH (09:23)
[2020-05-27] MEDS: METFORMIN HCL 500 MG TABLET PO SCH (09:23)
[2020-05-27] MEDS: GLYBURIDE 5 MG TABLET PO SCH ×2 (09:23→17:08)
[2020-05-27] MEDS: PANTOPRAZOLE SODIUM 40 MG TABLET.DR PO SCH (09:23)
[2020-05-27] MEDS ORDERED: FLUTICASONE/VILANTEROL 200-25 MCG/DOSE IH SCH (10:00)
[2020-05-27 11:53] LABS: ANION GAP 7 (5-19); BLOOD UREA NITROGEN 14 mg/dL (7-20); CALCIUM 8.7 mg/dL (8.4-10.2); CARBON DIOXIDE 24 mmol/L (22-30); CHLORIDE 104 mmol/L (98-107); GLUCOSE 324 mg/dL (75-110); POTASSIUM 4.2 mmol/L (3.6-5.0)
[2020-05-27] MEDS: NORMAL SALINE 1000 ML 1,000 ML IV PRN (13:22)
[2020-05-27 15:28] LABS: ANION GAP 6 (5-19); BLOOD UREA NITROGEN 15 mg/dL (7-20); CALCIUM 8.6 mg/dL (8.4-10.2); CARBON DIOXIDE 23 mmol/L (22-30); CHLORIDE 108 mmol/L (98-107); GLUCOSE 188 mg/dL (75-110); POTASSIUM 4.1 mmol/L (3.6-5.0)
[2020-05-27 16:03] VITALS: BP 113/60
[2020-05-27] MEDS: ENOXAPARIN SODIUM INJ 40 MG/0.4 ML DISP.SYRIN SUBCUT SCH (17:07)
[2020-05-27] MEDS: PATIROMER 8.4 GM SUSP PACKET PO SCH (17:09)
--- NOTE | 2020-05-27 20:34 | PDOC DISCHARGE SUMMARY ---
Impression - Admit/DC Date/PCP Admission Date/Primary Care Provider: 05/24/20 17:24 RAGHAV HAGER MD Discharge Date: 05/27/20 - Discharge Diagnosis (1) Acute kidney injury Is this a current diagnosis for this admission?: Yes (2) Metabolic acidosis Is this a current diagnosis for this admission?: Yes (3) Hypotension Is this a current diagnosis for this admission?: Yes (4) Hyperkalemia Is this a current diagnosis for this admission?: Yes (5) T2DM (type 2 diabetes mellitus) Is this a current diagnosis for this admission?: Yes (6) Morbid (severe) obesity due to excess calories Is this a current diagnosis for this admission?: Yes (7) Hyperglycemia due to type 2 diabetes mellitus Is this a current diagnosis for this admission?: Yes - Additional Information Discharge Diet: Diabetic Discharge Activity: Activity As Tolerated Referrals: RAGHAV HAGER MD [Primary Care Provider] - JESS BRIONES PA-C [ALLIED HEALTH PROFESSIONAL] - Follow up as needed Prescriptions: Dapagliflozin Propanediol [Farxiga] 10 mg PO DAILY #90 tablet Blood-Glucose Meter [Freestyle Insulinx] 1 each MC ASDIR PRN #1 each PRN Reason: Blood Sugar Diagnostic [Freestyle Insulinx] 1 each ACHS #90 strip Blood Sugar Diagnostic [Freestyle Insulinx Test Strips] 1 each ACHS #90 strip Lancets [Freestyle Lancets] 1 each MC DAILY #100 each Dulaglutide [Trulicity] 1.5 mg SQ Q7D #12 ml Home Medications: RX: Glyburide 5 mg PO BID 03/04/16 RX: Losartan Potassium 100 mg PO DAILY 03/04/16 RX: Metformin HCl 1,000 mg PO BID 03/04/16 RX: Omeprazole 40 mg PO DAILY 03/04/16 RX: Quetiapine Fumarate 100 mg PO DAILY 03/04/16 RX: Albuterol Sulfate [Ventolin Hfa 8 gm Mdi] 1 puff IH Q4HP PRN 05/24/20 RX: Budesonide/Formoterol Fumarate [Symbicort HFA 160-4.5 mcg Inhaler 6 gm] 1 puff IH Q12 05/24/20 Blood Sugar Diagnostic [Freestyle Insulinx Test Strips] 1 each ACHS #90 strip 05/27/20 Blood Sugar Diagnostic [Freestyle Insulinx] 1 each ACHS #90 strip 05/27/20 Blood-Glucose Meter [Freestyle Insulinx] 1 each ASDIR PRN #1 each 05/27/20 Dapagliflozin Propanediol [Farxiga] 10 mg PO DAILY #90 tablet 05/27/20 Dulaglutide [Trulicity] 1.5 mg SQ Q7D #12 ml 05/27/20 Lancets [Freestyle Lancets] 1 each DAILY #100 each 05/27/20 History of Present Illiness History of Present Illness: KIRSTEN HANCOCK is a 64 year old male, He has history of poorly controlled diabetes mellitus, partly due to nonadherence to recommended diet, he drinks up to 20 sodas every day, he came to the office today because he was not feeling well, the caregiver said he has been sick since Sunday, the blood sugar has been very uncontrolled but he refused to go to emergency room he preferred to come to the office this morning for evaluation. He was seen in the office this morning the blood pressure recorded was 96/57 the [id number] Accu-Chek was 350 patient was feeling very sick he laid on the floor in the office, he admitted polyuria, I felt patient needed to be admitted into the hospital for management. There was no bed available to admit him directly to the hospital according to the nursing meter shop supervisor so patient was directed to the ER.In the emergency room he was found to have a low blood pressure, 88/61, the chemistry demonstrated serum creatinine 2.48, BUN was 40, the serum creatinine from March 30, 2020 was 1.41, the potassium was 6.4, the venous pH was 7.24 the serum bicarbonate was 18, the serum glucose was 381. The initial lactic acid was normal. Hospital Course Hospital Course: Patient was admitted for the management of hypotension, uncontrolled diabetes, electrolyte derangement. He was Vigorously hydrated with normal saline with hindu of blood volume, electrolytes were corrected on admission he had acute kidney injury, with hydration the kidney function was normalized suggesting that this is most likely prerenal azotemia rather than a true reflection of intrinsic kidney disease.He was seen by the dietitian, cigar making machine supervisor. Patient need therapeutic lifestyle modification, he indulges in heavy intake of soda.He was advised to stop drinking too much soda, to exercise and lose weight Physical Exam Vital Signs: Temp Pulse Resp BP Pulse Ox 98.1 F 73 20 113/60 98 05/27/20 18:20 05/27/20 18:20 05/27/20 18:20 05/27/20 18:20 05/27/20 18:20 Intake & Output 05/26/20 05/27/20 05/28/20 06:59 06:59 06:59 Intake Total 4250 3218 1445 Balance 4250 3218 1445 Weight 125.3 kg 124.3 kg 124.3 kg General appearance: PRESENT: no acute distress, morbidly obese Eye exam: PRESENT: PERRLA Respiratory exam: PRESENT: clear to auscultation maurizio Cardiovascular exam: PRESENT: +S1, +S2 GI/Abdominal exam: PRESENT: soft Neurological exam: PRESENT: alert, CN II-XII grossly intact Results Laboratory Results: WBC 6.7 10^3/uL (4.0-10.5) 05/25/20 06:48 RBC 3.91 10^6/uL (4.35-5.55) L 05/25/20 06:48 Hgb 12.7 g/dL (13.5-17.0) L 05/25/20 06:48 Hct 36.8 % (37.9-51.0) L 05/25/20 06:48 MCV 94 fl (80-97) 05/25/20 06:48 MCH 32.4 pg (27.0-33.4) 05/25/20 06:48 MCHC 34.4 g/dL (32.0-36.0) 05/25/20 06:48 RDW 14.2 % (11.5-14.0) H 05/25/20 06:48 Plt Count 252 10^3/uL (150-450) 05/25/20 06:48 Lymph % (Auto) 35.3 % (13-45) 05/25/20 06:48 Wilkinson % (Auto) 8.6 % (3-13) 05/25/20 06:48 Eos % (Auto) 4.8 % (0-6) 05/25/20 06:48 Baso % (Auto) 1.3 % (0-2) 05/25/20 06:48 Absolute Neuts (auto) 3.3 10^3/uL (1.7-8.2) 05/25/20 06:48 Absolute Lymphs (auto) 2.3 10^3/uL (0.5-4.7) 05/25/20 06:48 Absolute Monos (auto) 0.6 10^3/uL (0.1-1.4) 05/25/20 06:48 Absolute Eos (auto) 0.3 10^3/uL (0.0-0.6) 05/25/20 06:48 Absolute Basos (auto) 0.1 10^3/uL (0.0-0.2) 05/25/20 06:48 Seg Neutrophils % 50.0 % (42-78) 05/25/20 06:48 PT 12.4 SEC (11.4-15.4) 05/24/20 21:50 INR 0.92 05/24/20 21:50 APTT 21.2 SEC (23.5-35.8) L 05/24/20 21:50 VBG pH 7.24 (7.30-7.42) L 05/24/20 15:35 VBG pCO2 46.1 mmHg (35-63) 05/24/20 15:35 VBG HCO3 19.2 mmol/L (20-32) L 05/24/20 15:35 VBG Base Excess -8.3 mmol/L 05/24/20 15:35 Sodium 137.2 mmol/L (137-145) 05/27/20 14:58 Potassium 4.1 mmol/L (3.6-5.0) 05/27/20 14:58 Chloride 108 mmol/L (98-107) H 05/27/20 14:58 Carbon Dioxide 23 mmol/L (22-30) 05/27/20 14:58 Anion Gap 6 (5-19) 05/27/20 14:58 BUN 15 mg/dL (7-20) 05/27/20 14:58 Creatinine 1.09 mg/dL (0.52-1.25) 05/27/20 14:58 Est GFR ( Amer) > 60 (>60) 05/27/20 14:58 Est GFR (MDRD) Non-Af > 60 (>60) 05/27/20 14:58 Glucose 188 mg/dL (75-110) H 05/27/20 14:58 POC Glucose 158 mg/dL (70-110) H 05/27/20 16:27 Hemoglobin A1c % 11.5 % (4.7-6.0) H 05/25/20 06:48 Lactic Acid 1.1 mmol/L (0.7-2.1) 05/24/20 20:45 Calcium 8.6 mg/dL (8.4-10.2) 05/27/20 14:58 Phosphorus 4.3 mg/dL (2.5-4.5) 05/24/20 21:50 Magnesium 2.0 mg/dL (1.6-2.3) 05/24/20 21:50 Total Bilirubin 0.6 mg/dL (0.2-1.3) 05/25/20 06:48 Direct Bilirubin 0.0 mg/dL (0.0-0.4) 05/25/20 06:48 Neonat Total Bilirubin Not Reportable 05/25/20 06:48 Neonat Direct Bilirubin Not Reportable 05/25/20 06:48 Neonat Indirect Bili Not Reportable 05/25/20 06:48 AST 32 U/L (17-59) 05/25/20 06:48 ALT 45 U/L (<50) 05/25/20 06:48 Alkaline Phosphatase 71 U/L (38-126) 05/25/20 06:48 Ammonia < 8.7 umol/L (9-33) L 05/25/20 06:48 Creatine Kinase 173 U/L (55-170) H 05/25/20 10:51 CK-MB (CK-2) 4.21 ng/mL (<4.55) 05/25/20 10:51 Troponin I 0.012 ng/mL 05/25/20 10:51 NT-Pro-B Natriuret Pep 32 pg/mL (<125) 05/24/20 21:50 Total Protein 7.3 g/dL (6.3-8.2) 05/25/20 06:48 Albumin 3.8 g/dL (3.5-5.0) 05/25/20 06:48 Triglycerides 247 mg/dL (<150) H 05/25/20 06:48 Cholesterol 119.09 mg/dL (0-200) 05/25/20 06:48 LDL Cholesterol Direct 51 mg/dL (<100) 05/25/20 06:48 VLDL Cholesterol 49.4 mg/dL (10-31) H 05/25/20 06:48 HDL Cholesterol 38 mg/dL (>40) L 05/25/20 06:48 Amylase < 30 U/L (30-110) L 05/25/20 06:48 Lipase 99.6 U/L (23-300) 05/25/20 06:48 TSH 2.20 uIU/mL (0.47-4.68) 05/25/20 06:48 Free T4 1.13 ng/dL (0.78-2.19) 05/25/20 06:48 Urine Color YELLOW 05/24/20 22:12 Urine Appearance CLEAR 05/24/20 22:12 Urine pH 5.0 (5.0-9.0) 05/24/20 22:12 Ur Specific [place] 1.016 05/24/20 22:12 Urine Protein 30 mg/dL (NEGATIVE) H 05/24/20 22:12 Urine Glucose (UA) >=500 mg/dL (NEGATIVE) H 05/24/20 22:12 Urine Ketones NEGATIVE mg/dL (NEGATIVE) 05/24/20 22:12 Urine Blood SMALL (NEGATIVE) H 05/24/20 22:12 Urine Nitrite NEGATIVE (NEGATIVE) 05/24/20 22:12 Urine Nitrite (Reflex) NEGATIVE (NEGATIVE) 05/24/20 15:35 Urine Bilirubin NEGATIVE (NEGATIVE) 05/24/20 22:12 Urine Urobilinogen NEGATIVE mg/dL (<2.0) 05/24/20 22:12 Ur Leukocyte Esterase NEGATIVE (NEGATIVE) 05/24/20 22:12 Leukocyte Esterase Rfl NEGATIVE (NEGATIVE) 05/24/20 15:35 Urine WBC (Auto) 1 /HPF 05/24/20 22:12 Urine RBC (Auto) 13 /HPF 05/24/20 22:12 U Hyaline Cast (Auto) 1 /LPF 05/24/20 22:12 Urine WBC (Reflex) < 1 /HPF 05/24/20 15:35 Squamous Epi Cells Auto <1 /HPF 05/24/20 15:35 Urine Mucus (Auto) RARE /LPF 05/24/20 15:35 Urine Ascorbic Acid NEGATIVE (NEGATIVE) 05/24/20 22:12 05/24/20 05/24/20 05/24/20 14:50 21:50 21:50 CK-MB (CK-2) 3.84 Troponin I < 0.012 < 0.012 NT-Pro-B Natriuret Pep 32 32 05/25/20 05/25/20 02:30 10:51 CK-MB (CK-2) 3.59 4.21 Troponin I 0.013 0.012 NT-Pro-B Natriuret Pep Impressions: Chest X-Ray 05/24/20 15:00 IMPRESSION: CARDIAC ENLARGEMENT. VASCULAR CONGESTION. Stroke Is this a Stroke Patient?: No Acute Heart Failure - Is this a Heart Failure Patient?: No
== END 2020-05-27 18:38 | disposition home health service (06) | DRG 683 ==
LOC: ER 13:22 → EH 17:24 → 3S 18:35
PROVIDERS: ADMIT Internal Medicine; ATTEND Internal Medicine
DX: N17.9 Acute kidney failure, unspecified (principal); E87.2 Acidosis; F20.89 Other schizophrenia; E11.65 Type 2 diabetes mellitus with hyperglycemia; E86.0 Dehydration; E87.5 Hyperkalemia; E86.1 Hypovolemia; I10 Essential (primary) hypertension; I95.89 Other hypotension; E66.01 Morbid (severe) obesity due to excess calories; E11.42 Type 2 diabetes mellitus with diabetic polyneuropathy; F63.9 Impulse disorder, unspecified; Z96.651 Presence of right artificial knee joint; Z79.4 Long term (current) use of insulin; Z90.49 Acquired absence of other specified parts of digestive tract; Z79.82 Long term (current) use of aspirin; Z79.84 Long term (current) use of oral hypoglycemic drugs; Z79.51 Long term (current) use of inhaled steroids; Z79.899 Other long term (current) drug therapy; Z91.11 Patient's noncompliance with dietary regimen
CPT/HCPCS: 36415; 71046; 80048; 80053; 80061; 80076; 81001; 82140; 82150; 82550; 82553; 82803; 82962; 83036; 83605; 83690; 83735; 83880; 84100; 84439; 84443; 84484; 85025; 85610; 85730; 87040; 87086; 93005; 93010; 96361; 96374; 99285; J0610; J1650; J1815; J3490; J7030; J7120

== ENCOUNTER → 2020-08-11 | Outpatient (CLI) | payer MEDICARE, MEDICAID ==
--- NOTE | 2020-08-11 14:26 | RADIOLOGY REPORT (SQ) ---
EXAM DESCRIPTION: RIBS RIGHT W/PA CHEST IMAGES COMPLETED DATE/TIME: 08/11/2020 2:01 pm REASON FOR STUDY: CHEST PAIN, UNSPECIFIED R07.9 CHEST PAIN, UNSPECIFIED COMPARISON: 05/24/2020 TECHNIQUE: Frontal view of the chest and additional views of the right ribs acquired. NUMBER OF VIEWS: Six view. LIMITATIONS: None. FINDINGS: FRONTAL CXR: No pneumothorax. No pleural effusion. No atelectasis or infiltrates. RIBS: Minimally displaced right 6th lateral rib fracture. OTHER: No other significant finding. IMPRESSION: Right 6th lateral rib fracture. No effusion or pneumothorax. COMMENT: SITE OF TRAUMA/COMPLAINT MARKED/STAMP COMPLETED: NO. TECHNICAL DOCUMENTATION: JOB ID: [id number] [employer]- All Rights Reserved Reading location - IP/workstation name: [email or web address]
== END ==
LOC: OD 13:18
PROVIDERS: ATTEND Internal Medicine
DX: R07.9 Chest pain, unspecified (principal); S22.31XA Fracture of one rib, right side, initial encounter for closed fracture; X58.XXXA Exposure to other specified factors, initial encounter

== ENCOUNTER → 2020-08-30 | Outpatient (CLI) | payer MEDICARE, MEDICAID ==
[2020-08-30 15:47] LABS: HEMATOCRIT 38.7 % (37.9-51.0); HEMOGLOBIN 13.4 g/dL (13.5-17.0); MEAN CORPUSCULAR HGB CONC 34.6 g/dL (32.0-36.0); MEAN CORPUSCULAR VOLUME 93 fl (80-97); PLATELET COUNT 382 10^3/uL (150-450); RED BLOOD COUNT 4.19 10^6/uL (4.35-5.55); RED CELL DISTRIBUTION WIDTH 13.9 % (11.5-14.0); WHITE BLOOD COUNT 9.6 10^3/uL (4.0-10.5)
[2020-08-30 15:48] LABS: APPEARANCE,URINE CLEAR; BILIRUBIN,URINE NEGATIVE (NEGATIVE); COLOR,URINE YELLOW; GLUCOSE, URINE >=500 mg/dL (NEGATIVE); KETONES,URINE NEGATIVE (NEGATIVE); LEUKOCYTE ESTERASE,URINE NEGATIVE (NEGATIVE); NITRITE,URINE NEGATIVE (NEGATIVE); PROTEIN,URINE 100 mg/dL (NEGATIVE); URINE SPECIFIC GRAVITY 1.018; UROBILINOGEN,URINE NEGATIVE mg/dL (<2.0)
[2020-08-30 16:02] LABS: UR PRO/CREAT RATIO RESULT 0.3 mg/mg (0.0-0.2); URINE CREATININE 180.8 mg/dL (22-328); URINE PROTEIN 61.5 mg/dL (<12)
[2020-08-30 16:09] LABS: ALBUMIN 4.6 g/dL (3.5-5.0); ANION GAP 14 (5-19); BLOOD UREA NITROGEN 24 mg/dL (7-20); CALCIUM 9.9 mg/dL (8.4-10.2); CARBON DIOXIDE 24 mmol/L (22-30); CHLORIDE 100 mmol/L (98-107); GLUCOSE 206 mg/dL (75-110); PHOSPHORUS 3.4 mg/dL (2.5-4.5); POTASSIUM 4.3 mmol/L (3.6-5.0)
== END ==
LOC: OD 14:34
PROVIDERS: ATTEND Physician Assistant Medical
DX: N18.2 Chronic kidney disease, stage 2 (mild) (principal)
CPT/HCPCS: 36415; 80069; 81001; 82570; 84156; 85027

== ENCOUNTER 2020-11-05 22:10 | Emergency (ER) | payer MEDICARE, MEDICAID ==
--- NOTE | 2020-11-05 22:43 | ER Document Report ---
ED Medical Screen (RME) - General Chief Complaint: Shortness Of Breath Stated Complaint: SHORTNESS OF BREATH,NAUSEA Time Seen by Provider: 11/05/20 22:25 Primary Care Provider: JESS BRIONES PA-C [Primary Care Provider] - Follow up as needed Mode of Arrival: Medic Information source: Patient Notes: 65-year-old male patient presented to the emergency department chief complaint of shortness of breath with nausea. Patient is a poor historian. Patient denies any chest pain, fever, chills, body aches. Denies any known exposure to Covid. When asked if he is concerned about Covid he reports to me that he is not because he was already tested "a long time ago". Lung sounds clear and equal bilaterally. No acute distress noted. Patient educated on proper mask wearing. I have greeted and performed a rapid initial assessment of this patient. A comprehensive ED assessment and evaluation of the patient, analysis of test results and completion of the medical decision making process will be conducted by additional ED providers. I have specifically instructed the patient or family members with the patient to immediately return to any nursing staff should anything change in the patient's condition or with their chief complaint. TRAVEL OUTSIDE OF THE [place] IN LAST 30 DAYS: No - Related Data Allergies/Adverse Reactions: Sulfa (Sulfonamide Antibiotics) Allergy (Verified 03/04/16 16:09) Home Medications: Aspirin. Omeprazole. Albuterol. Olmesa. Metformin Past Medical History - Social History Chew tobacco use (# tins/day): No Frequency of alcohol use: None Drug Abuse: None - Past Medical History Cardiac Medical History: Reports: Hx Hypercholesterolemia, Hx Hypertension Endocrine Medical History: Reports: Hx Diabetes Mellitus Type 2 Renal/ Medical History: Denies: Hx Peritoneal Dialysis Psychiatric Medical History: Denies: Hx Depression Past Surgical History: Reports: Hx Appendectomy, Hx Cholecystectomy - Immunizations Hx Diphtheria, Pertussis, Tetanus Vaccination: Yes Physical Exam - Vital signs Vitals: Temp 97.5 F 11/05/20 22:26 Course - Vital Signs Vital signs: Temp Pulse Resp BP Pulse Ox 97.5 F 110 H 20 165/97 H 95 11/05/20 22:26 11/05/20 22:32 11/05/20 22:32 11/05/20 22:32 11/05/20 22:32 Doctor's Discharge - Discharge Referrals: JESS BRIONES PA-C [Primary Care Provider] - Follow up as needed
[2020-11-05 23:10] LABS: ABSOLUTE BASOPHILS # (AUTO) 0.1 10^3/uL (0.0-0.2); ABSOLUTE EOSINOPHILS # (AUTO) 0.3 10^3/uL (0.0-0.6); ABSOLUTE LYMPHOCYTES (AUTO) 1.9 10^3/uL (0.5-4.7); ABSOLUTE MONOCYTES (AUTO) 0.8 10^3/uL (0.1-1.4); ABSOLUTE NEUT (AUTO) 10.8 10^3/uL (1.7-8.2); EOSINOPHILS % (AUTO) 2.1 % (0-6); HEMATOCRIT 41.6 % (37.9-51.0); HEMOGLOBIN 14.2 g/dL (13.5-17.0); LYMPHOCYTES % (AUTO) 13.6 % (13-45); MEAN CORPUSCULAR HEMOGLOBIN 31.8 pg (27.0-33.4); MEAN CORPUSCULAR HGB CONC 34.1 g/dL (32.0-36.0); MEAN CORPUSCULAR VOLUME 93 fl (80-97); MONOCYTES % (AUTO) 6.1 % (3-13); PLATELET COUNT 379 10^3/uL (150-450); RED BLOOD COUNT 4.47 10^6/uL (4.35-5.55); RED CELL DISTRIBUTION WIDTH 14.1 % (11.5-14.0); SEGMENTED NEUTROPHILS % (AUTO) 77.2 % (42-78); TOTAL CELLS COUNTED % (AUTO) 100 %; WHITE BLOOD COUNT 13.9 10^3/uL (4.0-10.5)
[2020-11-05 23:20] LABS: ALBUMIN 4.5 g/dL (3.5-5.0); ALKALINE PHOSPHATASE 116 U/L (38-126); ANION GAP 11 (5-19); ASPARTATE AMINO TRANSFERASE 31 U/L (17-59); BILIRUBIN,DIRECT 0.2 mg/dL (0.0-0.4); BILIRUBIN,TOTAL 0.3 mg/dL (0.2-1.3); BLOOD UREA NITROGEN 33 mg/dL (7-20); CALCIUM 9.9 mg/dL (8.4-10.2); CARBON DIOXIDE 21 mmol/L (22-30); CHLORIDE 102 mmol/L (98-107); POTASSIUM 5.1 mmol/L (3.6-5.0); TOTAL PROTEIN 8.3 g/dL (6.3-8.2)
[2020-11-05 23:30] LABS: GLUCOSE 432 mg/dL (75-110)
--- NOTE | 2020-11-06 01:05 | RADIOLOGY REPORT (SQ) ---
CLINICAL HISTORY: shortness of breath COMPARISON: 11/08/2018. TECHNIQUE: XR CHEST 1 VIEW 11/05/2020 10:41 PM TRANSLATION DIRECTOR FINDINGS: The heart is mildly enlarged. Lungs are clear without consolidation, atelectasis, mass or edema. There is no pleural effusion. There is no pneumothorax. There are no acute osseous findings. IMPRESSION: Clear lungs.
--- NOTE | 2020-11-06 03:40 | ER Document Report ---
ED General - General Chief Complaint: Shortness Of Breath Stated Complaint: SHORTNESS OF BREATH,NAUSEA Time Seen by Provider: 11/05/20 22:25 Primary Care Provider: JESS BRIONES PA-C [Primary Care Provider] - Follow up as needed Mode of Arrival: Medic TRAVEL OUTSIDE OF THE [place] IN LAST 30 DAYS: No - HPI Context: Chief Complaint: [Shortness of breath] [This is a 65-year-old male with a history of chronic renal disease presenting to the emergency department stating that he feels short of breath and is also having some nausea. ] History obtained from [patient] Symptoms began:[Earlier tonight] Onset: [Gradual] Timing: [Gradual] Quality: [Dyspneic] Intensity: [Moderate] Location: [Lungs] Radiation: [Denies] [The pain does not migrate to a new location.] Aggravating factors: [none] Relieving factors: [none] Positive SOB Positive nausea [Denies] vomiting [Denies] sweats [Denies] fever [Denies] cough [Denies] calf or leg swelling or pain - Related Data Allergies/Adverse Reactions: Sulfa (Sulfonamide Antibiotics) Allergy (Verified 03/04/16 16:09) Home Medications: Aspirin. Omeprazole. Albuterol. Olmesa. Metformin Past Medical History - General Information source: Patient - Social History Smoking Status: Never Smoker Chew tobacco use (# tins/day): No Frequency of alcohol use: None Drug Abuse: None Family History: Reviewed & Not Pertinent - Past Medical History Cardiac Medical History: Reports: Hx Hypercholesterolemia, Hx Hypertension Endocrine Medical History: Reports: Hx Diabetes Mellitus Type 2 Renal/ Medical History: Denies: Hx Peritoneal Dialysis Psychiatric Medical History: Denies: Hx Depression Past Surgical History: Reports: Hx Appendectomy, Hx Cholecystectomy - Immunizations Hx Diphtheria, Pertussis, Tetanus Vaccination: Yes Review of Systems - Review of Systems Notes: Review of systems as below unless otherwise stated in HPI. CONSTITUTIONAL [No] fever, [No] chills. EYES [No] eye pain. ENT [No] URI symptoms, [No] sore throat, [No] ear pain. CARDIOVASCULAR [No] chest pain, [No] palpitations, [No] edema. RESPIRATORY [No] Cough, positive SOB, [No] wheezing. GASTROINTESTINAL [No] abdominal pain, positive nausea, [No] Diarrhea, [No] Vomiting, [No] constipation, [No] melena, [No] rectal bleeding. GENITOURINARY [No] dysuria, [No] urinary frequency, [No] hematuria, [No] urinary urgency MUSCULOSKELETAL [No] Back pain. SKIN [No] Rash. NEUROLOGIC [No] Headache, [No] recent seizures, [No] paralysis,[No] parathesias. ENDOCRINE [No] polyuria. HEMO/LYMPATIC [No] easy brusing PSYCHIATRIC [No] depression. Physical Exam - Vital signs Vitals: Temp 97.5 F 11/05/20 22:26 - Notes Notes: CONSTITUTIONAL [Vital signs reviewed, Patient appears comfortable, Alert and oriented X 3, disheveled appearance, normal stature.] HEAD [Atraumatic, Normocephalic.] EYES [Eyes are normal to inspection, No discharge from eyes, Extraocular muscles in tact, Sclera are normal, Conjunctiva are normal.] ENT [External ears normal to inspection, Nose examination normal, Mouth normal to inspection.] NECK [Normal ROM, No jugular venous distention, No meningeal signs, ] RESPIRATORY CHEST [Chest is nontender, Breath sounds normal, No respiratory distress.] CARDIOVASCULAR [RRR, No murmurs, Normal S1 S2, No rub, No gallop.] ABDOMEN [Abdomen is nontender, No pulsatile masses, No other masses, Bowel sounds normal, No distension, No peritoneal signs, No hernias.] BACK [There is no CVA Tenderness, There is no tenderness to palpation, Normal inspection.] UPPER EXTREMITY [Inspection normal, No cyanosis, No clubbing, No edema, LOWER EXTREMITY [Inspection normal, No cyanosis, No clubbing, No edema, No calf tenderness, NEURO [No focal motor deficits, No focal sensory deficits, Speech normal.] SKIN [Skin is warm, Skin is dry, Skin is normal color.] PSYCHIATRIC [Normal affect. ] Course - Re-evaluation Re-evalutation: 11/06/20 03:41 Patient states his shortness of breath is resolved and he "feels fine." Results of ED MSE discussed with patient. All questions were answered prior to discharge. Emergency signs and symptoms, reasons to return to the emergency department discussed with patient. - Vital Signs Vital signs: Temp Pulse Resp BP Pulse Ox 97.5 F 110 H 20 165/97 H 95 01/08/21 22:26 11/05/20 22:32 11/05/20 22:32 11/05/20 22:32 11/05/20 22:32 - Laboratory Results Result Diagrams: 11/05/20 22:55 11/05/20 22:55 Laboratory Results Interpreted: 11/05/20 11/05/20 11/06/20 22:55 22:55 03:06 WBC 13.9 H RDW 14.1 H Absolute Neuts (auto) 10.8 H Sodium 134.0 L Potassium 5.1 H Carbon Dioxide 21 L BUN 33 H Creatinine 1.35 H Est GFR (MDRD) Non-Af 53 L Glucose 432 H* POC Glucose 292 H ALT 53 H Total Protein 8.3 H Critical Laboratory Results Reviewed: Yes Attending or Supervising Physician who Reviewed Labs: BRITTA BETANCUR IV - Blood glucose is 432, down to 292 on recheck - Radiology Results Critical Radiology Results Reviewed: No Critical Results Attending or Supervising Physician who Reviewed Radiology: BRITTA BETANCUR IV - EKG Interpretation by Me Additional EKG results interpreted by me: 11/06/20 03:43 EKG obtained on 11/05/2020 at 2258 hrs. was interpreted by this MD. Findings: Sinus tachycardia, rate 107, borderline left axis deviation is present, DC intervals appear to be within normal limits, P waves preceding QRS complexes, QRS complexes appear narrow, QTC is 449, there are no obvious patterns of ST segment elevation, depression or reciprocal changes seen to suggest acute myoca rdial ischemia or infarction. When compared with prior EKG from 05/25/2020, while the rate on today's EKG is faster than the prior EKG the overall gross morphology of the 2 EKGs seems similar. Discharge - Discharge Clinical Impression: Hyperglycemia Dyspnea Qualifiers: Dyspnea type: unspecified Qualified Code(s): R06.00 - Dyspnea, unspecified Condition: Stable Disposition: HOME, SELF-CARE Additional Instructions: Return to the Emergency Department without delay if any worse. HOME CARE INSTRUCTIONS & INFORMATION: Thank you for choosing us for your medical needs. We hope you're satisfied with the care you received. After you leave, you must properly care for your problem and, at the same time, observe its progress. Any condition can change. Some illnesses can change rapidly over hours or days. If your condition worsens, return to the Emergency Department or see your physician promptly. ABOUT YOUR X-RAYS AND EKG'S: If you had an EKG or X-rays taken, they have been read by the Emergency Physician. The X-rays and EKG's will also be read by a Radiologist or Associate Teacher within 24 hours. If discrepancies are noted, you will be notified by telephone. Please be certain the ED has a correct telephone number & address where you can be reached. Also, realize that some fractures or abnormalities do not show up on initial X-rays. If your symptoms continue, see your physician. ABOUT YOUR LABORATORY TEST: If you had laboratory tests, the results have been reviewed by the Emergency Physician. Some test results (for example cultures) may not be available for several days. You will be contacted if any test result shows you need additional treatment. Please be certain the ED has a correct telephone number and address where you can be reached. ABOUT YOUR MEDICATIONS: You will receive instructions on how to take your medicine on the prescription label you receive. Additional information may be provided by the Pharmacy. If you have questions afterwards, call the ED for clarification or further instructions. Some prescribed medications may cause drowsiness. Do not perform tasks such as driving a car or operating machinery without consulting your Pharmacist. If you feel you need a refill of pain medication, your condition will need re-evaluation. Please do not call for a refill of any medication. ABOUT YOUR SIGNATURE: Signature of this document acknowledges to followin. Understanding that you received emergency treatment and that you may be released before al medical problems are known or treated. Please be certain the ED has a correct phone number & address where you can be reached. 2. Acknowledgement that you will arrange for follow-up care as recommended. 3. Authorization for the Emergency Physician to provide information to your follow-up Physician in order to maximize your care. AT ANY TIME, IF YOUR SYMPTOMS CHANGE SIGNIFICANTLY OR WORSEN OR YOU DEVELOP NEW SYMPTOMS, RETURN TO THE EMERGENCY DEPARTMENT IMMEDIATELY FOR RE-EVALUATION. OUR GOAL IS TO PROVIDE EXCELLENT MEDICAL CARE! WE HOPE THAT WE HAVE MET YOUR EXPECTATIONS DURING YOUR EMERGENCY DEPARTMENT VISIT AND THAT YOU FEEL YOU HAVE RECEIVED EXCELLENT CARE! Referrals: JESS BRIONES PA-C [Primary Care Provider] - Follow up as needed
[2020-11-06 03:53] VITALS: BP 130/80
--- NOTE | 2020-11-06 22:36 | EKG REPORT ---
SEVERITY:- OTHERWISE NORMAL ECG - SINUS TACHYCARDIA BORDERLINE LEFT AXIS DEVIATION : Confirmed by: Jose Hernández 06-Nov-2020 22:35:52
== END 2020-11-06 04:17 | disposition home or self-care (01) ==
LOC: ER 22:10
DX: R06.02 Shortness of breath (principal); E11.65 Type 2 diabetes mellitus with hyperglycemia; R11.0 Nausea; R00.0 Tachycardia, unspecified; I10 Essential (primary) hypertension; Z79.82 Long term (current) use of aspirin; Z79.899 Other long term (current) drug therapy; Z79.84 Long term (current) use of oral hypoglycemic drugs; Z88.2 Allergy status to sulfonamides
CPT/HCPCS: 36415; 71045; 80053; 82962; 84484; 85025; 93005; 93010; 99285